=== PATIENT | female | born 1930 | race Caucasian/White ===

== ENCOUNTER → 2016-03-11 | Outpatient (CLI) | payer MEDICARE, BC ==
--- NOTE | 2016-03-11 12:32 | XR ---
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 There is some lucency along the fixation screws within the glenoid with some associated sclerosis. Some minimal lucency along the humeral component also noted especially at the lateral aspect. Marked arthropathy present at the acromioclavicular join t. Bone mineralization is decreased. Small ossific density is present at the inferior aspect of the b nancy glenoid on oblique view, there may be some small loose bodies. No dislocation. IMPRESSION: Correlate for possible prosthesis loosening. There may be some fragmentation at the bony glenoid, difficult to exclude chronic infection, correlate. Follow-up recommended.
== END | disposition home or self-care (01) ==
LOC: RADXRMAIN 11:20
PROVIDERS: ATTEND Orthopaedic Surgery
DX: M19.012 Primary osteoarthritis, left shoulder (principal); M24.419 Recurrent dislocation, unspecified shoulder

== ENCOUNTER 2016-04-07 08:11 | Inpatient (IN) | payer MEDICARE, BC ==
[2016-04-07] MEDS ORDERED: SODIUM CHLORIDE 0.9% 1,000 ML IV STA (08:39)
--- NOTE | 2016-04-07 08:41 | ED ---
General Adult HPI - General Chief complaint: Syncope Stated complaint: syncope Time Seen by Provider: 04/07/16 08:32 Source: patient, family, RN notes reviewed Mode of arrival: wheelchair Limitations: no limitations - History of Present Illness Initial comments: Patient is a pleasant 86-year-old female presenting to the emergency department following a syncopal episode. Episode occurred this morning after she woke up. Patient sat up on the side of her bed and felt lightheaded and then passed out. Patient believes she passed out before she struck the ground. Patient has very mild discomfort on the right side of her head where she did strike the ground. No history of syncopal episode previously. Patient did have some chest discomfort throughout the night however that lasted around 15 minutes and has resolved. Patient states she has not felt chest discomfort similar to that previously. Patient currently is symptom-free other than the very mild discomfort in the right side of her head. No neck or back pain. No chest pain or dyspnea. No abdominal pain. Patient is not currently on any blood thinners except for aspirin. No known history of atrial fibrillation. - Related Data Home Medications Medication Instructions Recorded Confirmed Aspirin 81 mg PO DAILY 07/22/13 04/07/16 Royce Cit/Mag/D3/Zn/Lead Carpenter/Madhu/Bor 1 tab PO DAILY 07/22/13 04/07/16 [Citracal-Vit D + Magnesium Tab] Calcium Carbonate/Vitamin D3 1 tab PO DAILY 07/22/13 04/07/16 [Caltrate 600 + D Tablet] Cholecalciferol [Vitamin D3] 2,000 unit PO DAILY@1200 07/22/13 04/07/16 Fish Oil/Dha/Epa [Fish Oil 1,200 1 cap PO DAILY 07/22/13 04/07/16 mg Fish Oil] Multivitamins, Thera [Multivitamin] 1 each PO DAILY 07/22/13 04/07/16 Nitroglycerin Sl Tabs [Nitrostat] 0.4 mg SUBLINGUAL Q5M PRN 07/22/13 04/07/16 Losartan Potassium [Cozaar] 100 mg PO DAILY 04/07/16 04/07/16 amLODIPine BESYLATE [Norvasc] 7.5 mg PO DAILY 04/07/16 04/07/16 Allergies Allergy/AdvReac Type Severity Reaction Status Date / Time lactose Allergy Unknown Abdominal Verified 04/07/16 09:00 Pain Sulfa (Sulfonamide Allergy Unknown Nausea & Verified 04/07/16 09:00 Antibiotics) Vomiting NSAIDS (Non-Steroidal AdvReac Unknown Unknown Verified 04/07/16 09:00 Anti-Inflamma Review of Systems ROS Statement: Those systems with pertinent positive or pertinent negative responses have been documented in the HPI. ROS Other: All systems not noted in ROS Statement are negative. Constitutional: Denies: fever Eyes: Denies: eye pain ENT: Denies: ear pain Respiratory: Denies: cough Cardiovascular: Reports: chest pain. Denies: palpitations Endocrine: Denies: fatigue Gastrointestinal: Denies: abdominal pain Genitourinary: Denies: urgency Musculoskeletal: Denies: back pain Skin: Denies: rash Neurological: Denies: weakness, paresthesias, confusion Past Medical History Past Medical History: Chest Pain / Angina, GERD/Reflux, Hypertension Additional Past Medical History / Comment(s): HAS ENEDINA ROTATOR CUFFS, HEMORRHOIDS , BLEEDING WITH BOWEL MOVEMENTS History of Any Multi-Drug Resistant Organisms: None Reported Past Surgical History: Cholecystectomy, Heart Catheterization With Stent, Joint Replacement, Orthopedic Surgery Additional Past Surgical History / Comment(s): VAGOTOMY, ENEDINA ROTATOR CUFF REPAIR , ENEDINA CATARACT, left shoulder replacement Past Anesthesia/Blood Transfusion Reactions: No Reported Reaction Date of Last Stent Placement:: 05/2012 Past Psychological History: No Psychological Hx Reported Smoking Status: Never smoker Past Alcohol Use History: Occasional Past Drug Use History: None Reported General Exam Limitations: no limitations General appearance: alert, in no apparent distress Head exam: Present: atraumatic Eye exam: Present: normal appearance, PERRL, EOMI ENT exam: Present: normal oropharynx Neck exam: Present: normal inspection. Absent: tenderness Respiratory exam: Present: normal lung sounds bilaterally Cardiovascular Exam: Present: irregular rhythm Expanded Peripheral pulses: 2+: Radial (R), Radial (L), Dorsalis Pedis (R), Dorsalis Pedis (L) GI/Abdominal exam: Present: soft. Absent: tenderness Extremities exam: Present: normal inspection Neurological exam: Present: alert, CN II-XII intact. Absent: motor sensory deficit Expanded Speech: Present: fluid speech Cranial nerves: EOM's Intact: Normal Sensory exam: Upper Extremity Light Touch: Normal, Lower Extremity Light Touch: Normal Motor strength exam: RUE: 5, LUE: 5, RLE: 5, LLE: 5 Eye Response: (4) open spontaneously Motor Response: (6) obeys commands Verbal Response: (5) oriented Psychiatric exam: Present: normal affect, normal mood Skin exam: Absent: rash Course Vital Signs 04/07/16 04/07/16 04/07/16 08:16 09:35 09:42 Temperature 97.7 F Pulse Rate 84 93 101 H Respiratory 20 18 18 Rate Blood Pressure 141/82 204/100 192/112 O2 Sat by Pulse 99 98 97 Oximetry 04/07/16 04/07/16 10:09 10:50 Temperature Pulse Rate 94 99 Respiratory 18 18 Rate Blood Pressure 157/103 141/110 O2 Sat by Pulse 96 98 Oximetry EKG Findings - EKG Comments: EKG Findings:: A. fib with a rate of 97. QRS 70. QT 302. QTC 33. Normal access. Septal Q waves. No acute ST change. Medical Decision Making - Medical Decision Making Patient reexamined and resting comfortably in bed. Heart rate remains in the upper 90s. Blood pressure remains 140/110. Patient did take her morning medications in the emergency department. Patient will be provided with atenolol orally. Patient remained symptom-free. Dr. Clifton was notified. Case was discussed in detail with Dr. Frazier, who will admit for Dr. Clifton. Cardiology will be consulted for A. fib syncope. - Lab Data Result diagrams: 04/07/16 08:55 04/07/16 08:55 Lab Results 04/07/16 04/07/16 04/07/16 Range/Units 08:45 08:55 08:55 WBC 4.2 (3.8-10.6) k/uL RBC 4.28 (3.80-5.40) m/uL Hgb 13.4 (11.4-16.0) gm/dL Hct 39.8 (34.0-46.0) % MCV 93.0 (80.0-100.0) fL MCH 31.4 (25.0-35.0) pg MCHC 33.8 (31.0-37.0) g/dL RDW 13.8 (11.5-15.5) % Plt Count 217 (150-450) k/uL Neutrophils % 68 % Lymphocytes % 21 % Monocytes % 7 % Eosinophils % 1 % Basophils % 0 % Neutrophils # 2.8 (1.3-7.7) k/uL Lymphocytes # 0.9 L (1.0-4.8) k/uL Monocytes # 0.3 (0-1.0) k/uL Eosinophils # 0.1 (0-0.7) k/uL Basophils # 0.0 (0-0.2) k/uL PT (9.0-12.0) sec INR (<1.1) APTT (22.0-30.0) sec Sodium (137-145) mmol/L Potassium (3.5-5.1) mmol/L Chloride (98-107) mmol/L Carbon Dioxide (22-30) mmol/L Anion Gap mmol/L BUN (7-17) mg/dL Creatinine (0.52-1.04) mg/dL Est GFR (MDRD) Af Amer (>60 ml/min/1.73 sqM) Est GFR (MDRD) Non-Af (>60 ml/min/1.73 sqM) Glucose (74-99) mg/dL Calcium (8.4-10.2) mg/dL Magnesium (1.6-2.3) mg/dL Total Bilirubin (0.2-1.3) mg/dL AST (14-36) U/L ALT (9-52) U/L Alkaline Phosphatase (38-126) U/L Total Creatine Kinase 121 (30-135) U/L CK-MB (CK-2) 2.4 (0.0-2.4) ng/mL CK-MB (CK-2) Rel Index 2.0 Troponin I 0.017 (0.000-0.034) ng/mL Total Protein (6.3-8.2) g/dL Albumin (3.5-5.0) g/dL TSH (0.465-4.680) mIU/L Free T4 (0.78-2.19) ng/dL Free T3 pg/mL (2.8-5.3) pg/ml Urine Color Colorless Urine Appearance Clear (Clear) Urine pH 7.0 (5.0-8.0) Ur Specific [place] 1.003 (1.001-1.035) Urine Protein Negative (Negative) Urine Glucose (UA) Negative (Negative) Urine Ketones Negative (Negative) Urine Blood Negative (Negative) Urine Nitrate Negative (Negative) Urine Bilirubin Negative (Negative) Urine Urobilinogen <2.0 (<2.0) mg/dL Ur Leukocyte Esterase Negative (Negative) 04/07/16 04/07/16 Range/Units 08:55 08:55 WBC (3.8-10.6) k/uL RBC (3.80-5.40) m/uL Hgb (11.4-16.0) gm/dL Hct (34.0-46.0) % MCV (80.0-100.0) fL MCH (25.0-35.0) pg MCHC (31.0-37.0) g/dL RDW (11.5-15.5) % Plt Count (150-450) k/uL Neutrophils % % Lymphocytes % % Monocytes % % Eosinophils % % Basophils % % Neutrophils # (1.3-7.7) k/uL Lymphocytes # (1.0-4.8) k/uL Monocytes # (0-1.0) k/uL Eosinophils # (0-0.7) k/uL Basophils # (0-0.2) k/uL PT 9.9 (9.0-12.0) sec INR 1.0 (<1.1) APTT 20.6 L (22.0-30.0) sec Sodium 134 L (137-145) mmol/L Potassium 4.3 (3.5-5.1) mmol/L Chloride 98 (98-107) mmol/L Carbon Dioxide 26 (22-30) mmol/L Anion Gap 10 mmol/L BUN 17 (7-17) mg/dL Creatinine 0.99 (0.52-1.04) mg/dL Est GFR (MDRD) Af Amer >60 (>60 ml/min/1.73 sqM) Est GFR (MDRD) Non-Af 53 (>60 ml/min/1.73 sqM) Glucose 98 (74-99) mg/dL Calcium 9.3 (8.4-10.2) mg/dL Magnesium 1.9 (1.6-2.3) mg/dL Total Bilirubin 0.6 (0.2-1.3) mg/dL AST 40 H (14-36) U/L ALT 46 (9-52) U/L Alkaline Phosphatase 75 (38-126) U/L Total Creatine Kinase (30-135) U/L CK-MB (CK-2) (0.0-2.4) ng/mL CK-MB (CK-2) Rel Index Troponin I (0.000-0.034) ng/mL Total Protein 6.8 (6.3-8.2) g/dL Albumin 4.0 (3.5-5.0) g/dL TSH 2.060 (0.465-4.680) mIU/L Free T4 1.51 (0.78-2.19) ng/dL Free T3 pg/mL 3.7 (2.8-5.3) pg/ml Urine Color Urine Appearance (Clear) Urine pH (5.0-8.0) Ur Specific [place] (1.001-1.035) Urine Protein (Negative) Urine Glucose (UA) (Negative) Urine Ketones (Negative) Urine Blood (Negative) Urine Nitrate (Negative) Urine Bilirubin (Negative) Urine Urobilinogen (<2.0) mg/dL Ur Leukocyte Esterase (Negative) - Radiology Data Radiology results: image reviewed (Chest x-ray shows chronic changes without acute abnormality. Computed tomography scan of the brain shows some atrophy without acute abnormality.) Disposition Clinical Impression: Syncope, New onset a-fib Disposition: ADMITTED IP TO THIS HOSP
[2016-04-07] MEDS ORDERED: amLODIPine 5 MG TAB PO STA (09:00)
[2016-04-07 09:04] LABS: Basophils % (A) 0 %; CH 32.1; CHCM 34.6; Eosinophils # (A) 0.1 k/uL (0-0.7); Eosinophils % (A) 1 %; HCT 39.8 % (34.0-46.0); HDW 2.48; HGB 13.4 gm/dL (11.4-16.0); Luc # (Auto) 0.12; Luc % (Auto) 3; Lymphocytes # (A) 0.9 k/uL (1.0-4.8); Lymphocytes % (A) 21 %; MCH 31.4 pg (25.0-35.0); MCHC 33.8 g/dL (31.0-37.0); Mean Platelet Volume 6.5; Monocytes # (A) 0.3 k/uL (0-1.0); Monocytes % (A) 7 %; Neutrophils # (A) 2.8 k/uL (1.3-7.7); Neutrophils % (A) 68 %; RBC 4.28 m/uL (3.80-5.40); RDW 13.8 % (11.5-15.5); WBC 4.2 k/uL (3.8-10.6); WBC (Perox) 3.97
[2016-04-07 09:15] LABS: ALT 46 U/L (9-52); AST 40 U/L (14-36); Alkaline Phosphatase 75 U/L (38-126); Anion Gap 10 mmol/L; Blood Urea Nitrogen 17 mg/dL (7-17); Calcium 9.3 mg/dL (8.4-10.2); Carbon Dioxide 26 mmol/L (22-30); Chloride 98 mmol/L (98-107); Glucose 98 mg/dL (74-99); Magnesium 1.9 mg/dL (1.6-2.3); Non-African American GFR(MDRD) 53 (>60 ml/min/1.73 sqM); Potassium 4.3 mmol/L (3.5-5.1); Sodium 134 mmol/L (137-145); Total Bilirubin 0.6 mg/dL (0.2-1.3); Total Protein 6.8 g/dL (6.3-8.2)
--- NOTE | 2016-04-07 09:17 | CT ---
EXAMINATION TYPE: CT brain wo con DATE OF EXAM: 04/07/2016 9:11 AM HISTORY: Patient had syncopal episode with blow to head this am. Headache at time of exam. CT DLP: 993 mGycm. Automated Exposure Control for Dose Reduction was Utilized. TECHNIQUE: CT scan of the head is performed without contrast. COMPARISON: None. FINDINGS: There is no acute intracranial hemorrhage or midline shift identified. There is diffuse v entricular and sulcal prominence consistent with diffuse age-related cerebral atrophy. There is low- attenuation in the periventricular white matter presumed on basis of product of chronic small vessel ischemic change in patient of this age. The globes are intact and the visualized sinuses are clear. IMPRESSION: No acute intracranial hemorrhage or midline shift. There is mild to moderate diffuse ag e-related cerebral atrophy and chronic small vessel ischemic change noted.
[2016-04-07 09:25] LABS: Prothrombin Time 9.9 sec (9.0-12.0)
--- NOTE | 2016-04-07 09:27 | XR ---
EXAMINATION TYPE: XR chest 2V DATE OF EXAM: 04/07/2016 9:16 AM COMPARISON: Chest x-ray and CTA chest February 06, 2012 HISTORY: Syncope and weakness TECHNIQUE: Frontal and lateral views of the chest are obtained. FINDINGS: Underlying emphysematous changes redemonstrated. There is no focal air space opacity, pleur al effusion, or pneumothorax seen. The cardiac silhouette size mildly enlarged on current study with ectatic thoracic aorta redemonstrated. Surgical clips near gastroesophageal junction are noted . The osseous structures are demineralized. Metallic anchors right humeral head level are redemonstra hilda. Surgical changes left shoulder level are partially imaged. IMPRESSION: Chronic emphysematous change with mild cardiomegaly but no acute pulmonary process.
[2016-04-07 09:36] LABS: Partial Thromboplastin Time 20.6 sec (22.0-30.0)
[2016-04-07 09:40] LABS: Creatine Kinase MB 2.4 ng/mL (0.0-2.4); Troponin I 0.017 ng/mL (0.000-0.034)
[2016-04-07 10:02] LABS: Appearance,Urine Clear (Clear); Bilirubin,Urine Negative (Negative); Glucose,Urine (UA) Negative (Negative); Ketones,Urine Negative (Negative); Leukocyte Esterase,Urine Negative (Negative); Nitrite,Urine Negative (Negative); Protein,Urine Negative (Negative); Specific Gravity,Urine 1.003 (1.001-1.035); UA Billing (MACRO vs. MICRO) CHEM; Urobilinogen,Urine <2.0 mg/dL (<2.0)
[2016-04-07] MEDS ORDERED: ATENOLOL 25 MG TAB PO STA (11:08)
[2016-04-07] MEDS ORDERED: NALOXONE 0.4 MG/ML 1 ML VIAL IV PRN (11:19)
[2016-04-07] MEDS: APIXABAN 2.5 MG TABLET PO SCH ×2 (13:22→20:43)
--- NOTE | 2016-04-07 13:31 | CONS ---
CHIEF COMPLAINT: Syncope. Nisreen is an 86-year-old lady with a history of coronary artery disease, status post angioplasty and hypertension who presented to hospital having had an episode of syncope. She was sitting and then suddenly passed out, did not have any chest pain or difficulty in breathing, did not have focal neurological deficits. There is no prior history of syncope. Patient has history of hypertension, recently had the amlodipine dose increased by Dr. Clifton and on evaluation today, she has significant orthostatic hypotension. Patient also has new onset atrial fibrillation, but with controlled ventricular rate. Past medical history is significant for coronary artery disease, status post angioplasty, and hypertension. Medications include: 1. Norvasc 7.5 daily. 2. Cozaar 100 mg daily. 3. Fish oil. 4. Aspirin. 5. Cholecalciferol. ALLERGIC TO SULFA, LACTOSE AND NSAIDS. FAMILY HISTORY: Negative for premature coronary artery disease. SOCIAL HISTORY: Negative for smoking, EtOH abuse or drug abuse. REVIEW OF SYSTEMS: HEENT: Unremarkable. CARDIAC: As described above. RESPIRATORY: Negative. GI: Negative. GENITOURINARY: Negative. ALLERGY/IMMUNOLOGY: Negative. SKIN: Negative. MUSCULOSKELETAL: Significant for arthritis. PSYCHOSOCIAL: Negative. ENDOCRINE: Negative. DERMATOLOGY: Negative. CONSTITUTIONAL: Negative. 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 ONCOLOGICAL: Negative. On exam, comfortable at rest. Heart rate is 89 beats per minute, blood pressure is 133/84. When sitting up, it drops to 98/60. O2 sat is 96% on room air. There is no jugular venous distention. Carotid upstroke is normal. There is no bruit. Chest reveals good air entry bilaterally. Heart reveals first and second heart sounds. No gallop. No murmur. Abdomen is soft, nontender. Extremities did not reveal edema. Peripheral pulses are felt. EKG shows atrial fibrillation with controlled ventricular rate. Hemoglobin is normal at 15.4. Potassium is 4.3. First set of troponin is negative. TSH is normal at 2. ASSESSMENT: 1. Syncope, probably secondary to orthostatic hypotension. 2. History of hypertension. 3. New onset atrial fibrillation. 4. Coronary artery disease, status post angioplasty. PLAN: I am going to obtain a 2-D echo on her to document her LV function, a carotid duplex study to rule out carotid stenosis. I reviewed her workup so far, including the EKGs and the CT brain. Patient will need a long-term to coagulate for stroke prevention. I am going to put her on Eliquis 2.5 mg b.i.d.
[2016-04-07] MEDS: CHOLECALCIFEROL 1,000 UNIT TAB PO SCH (14:41)
[2016-04-07 15:09] VITALS: BMI 17.6
[2016-04-07 16:19] LABS: Creatine Kinase MB 1.9 ng/mL (0.0-2.4); Troponin I 0.012 ng/mL (0.000-0.034)
--- NOTE | 2016-04-07 16:42 | US ---
EXAMINATION TYPE: US carotid duplex BILAT DATE OF EXAM: 04/07/2016 4:14 PM COMPARISON: NONE CLINICAL HISTORY: syncope. EXAM MEASUREMENTS: RIGHT: Peak Systolic Velocity (PSV) cm/sec ----- Right CCA: 34.6 ----- Right ICA: 45.9 ----- Right ECA: 29.8 ICA/CCA ratio: 1.3 RIGHT: End Diastole cm/sec ----- Right CCA: 15.4 ----- Right ICA: 22.3 ----- Right ECA: 5.8 LEFT: Peak Systolic Velocity (PSV) cm/sec ----- Left CCA: 33.7 ----- Left ICA: 84.4 ----- Left ECA: 53.8 ICA/CCA ratio: 2.5 LEFT: End Diastole cm/sec ----- Left CCA: 12.7 ----- Left ICA: 45.8 ----- Left ECA: 11.0 VERTEBRALS (direction of flow): Right Vertebral: Antegrade Left Vertebral: Antegrade TECHNOLOGIST IMPRESSION: Moderate plaque noted bilateral bifurcations. Generally decreased velocitie s, except for left ICA Grayscale images show moderate eccentric shadowing hyperechoic plaque at right carotid bulb . Mild to moderate eccentric hyperechoic plaque is seen at left carotid bulb. Velocity measurements and ratios in visualized portion of both internal carotid arteries is within normal limits. IMPRESSION: Mild to moderate atherosclerotic changes bilaterally without hemodynamically significant stenosis seen in either internal carotid artery.
[2016-04-07] MEDS ORDERED: RX INFO: IV CONTRAST WAS GIVEN 1 EACH MISC MISCELLANE PRN (17:24)
[2016-04-07] MEDS: SODIUM CHLORIDE 0.9% 1,000 ML IV SCH (17:52)
[2016-04-07 18:11] VITALS: RESP 18
--- NOTE | 2016-04-07 18:44 | CT ---
EXAMINATION TYPE: CT angio chest DATE OF EXAM: 04/07/2016 6:17 PM COMPARISON: 02/06/2012 HISTORY: Pt states of syncope and elevated d-dimer. CT DLP: 146.2 mGycm Automated exposure control for dose reduction was used. CONTRAST: CTA scan of the thorax is performed with IV Contrast, patient injected with 85 mL of Visipaque 320, p ulmonary embolism protocol. . FINDINGS: There are 3-D post processed images. There is a mild infiltrate at the right lung apex posteriorly. T here is no evidence of a pulmonary mass. There is no pleural effusion. Heart is slightly enlarged. Th ere is no pericardial effusion. I see no filling defects in the pulmonary arteries. There is no evide nce of aortic dissection. There is mild aneurysm of the ascending aorta that measures 4.1 cm. There i s no mediastinal adenopathy. IMPRESSION: NO EVIDENCE OF PULMONARY EMBOLISM. MILD ANEURYSM OF THE ASCENDING AORTA. MILD INFILTRATE AT THE RIGHT LUNG APEX PROBABLY RELATES TO SCARRING. NO ADVERSE CHANGE COMPARED TO OLD EXAM.
--- NOTE | 2016-04-07 20:41 | HP ---
CHIEF COMPLAINT: Syncope. HISTORY OF PRESENT ILLNESS: Ms. Nisreen Richards is an 86-year-old pleasant female with known history of hypertension, came to the hospital after a syncopal episode at home. Patient apparently woke up in the morning and she sat on the side of the bed and felt lightheaded and passed out and fell to the side and onto the floor. Patient woke up after about 15 minutes. Patient denied any chest discomfort, dizziness or lightheadedness before or after the episode. No bladder or bowel incontinence. Patient denied any weakness after the episode. Patient otherwise is symptom-free. No recent medical problems. Patient apparently has been taking blood pressure medications, including losartan and Norvasc dose has been increased to 7.5 mg recently. Her chest x-ray in the ER showed chronic emphysematous changes with mild cardiomegaly, but no acute cardiopulmonary process, and CT head showed no acute intracranial hemorrhage or midline shift and the EKG on admission showed atrial fibrillation which is new onset. Cardiology has seen the patient and currently started on anticoagulation. Rate is controlled now. Currently on anticoagulation in the form of Eliquis. Currently patient denied any complaints of fever, chills. No recent illnesses. No sick contacts at home. Patient denied any dehydration and patient has been taking in water at home. REVIEW OF SYSTEMS: CONSTITUTIONAL: No fever. No chills. No weakness, malaise. RESPIRATORY: No cough or sputum production. CARDIOVASCULAR: No chest pain or short of breath. ABDOMEN: No nausea, vomiting or abdominal pain. GENITOURINARY: Negative. ENDOCRINE: Negative. PSYCHIATRIC: Negative. SKIN: Negative. All other 14-point review of systems negative except as above. Past medical history includes chest pain/angina, GERD, hypertension. PAST SURGICAL HISTORY: Bilateral rotator cuff and hemorrhoid bleeding with bowel movements, cholecystectomy, cardiac catheterization and stent placement, joint replacement and orthopedic surgery, vagotomy, bilateral rotator cuff repair, bilateral cataract surgery, left shoulder replacement. SOCIAL HISTORY: Patient never a smoker, resides at home. Occasional alcohol use. Denied any drugs or IVDU. FAMILY HISTORY: Denied any history of premature heart disease in the family. ALLERGIES INCLUDE LACTOSE, SULFA AND NSAIDS. HOME MEDICATIONS: 1. Aspirin. 2. Citracal. 3. Calcium carbonate. 4. Vitamin D3. 5. Fish oil. 6. Multivitamins. 7. Nitroglycerin tablets. 8. Losartan. 9. Amlodipine 7.5 mg daily. PHYSICAL EXAM: An 86-year-old female lying in bed comfortably; alert and oriented x3, appears to be in no apparent distress. VITALS: Blood pressure is 162/111, pulse is 108, respirations 18, temperature afebrile, pulse ox 98% on 2L nasal cannula. Orthostatic vitals positive with blood pressure in supine position is 133/84 and blood pressure on sitting is 98/70. HEENT: Atraumatic, normocephalic. Neck is supple. No JVD. CVS: S1, S2 heard. No murmurs. No gallop. No rub. LUNGS: Bilateral air entry is present. No wheezing. No crackles. ABDOMEN: Soft, nontender. Bowel sounds present. 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 No focal deficit. EXTREMITIES: No edema. Pulses are present. No clubbing or cyanosis. PSYCHIATRIC: Cooperative. LABORATORY DATA: WBC 4.2, hemoglobin 13.4, platelets 217. INR is 1.0. D-dimer is 1.53. Sodium 134, potassium 4.8, chloride 98, bicarb is 26, BUN 17, creatinine 0.99. AST is 40, ALT is 46. Troponin is less than 0.017. TSH is 2.06, free T4 is 1.51. UA is negative. Chest x-ray showed cardiomegaly. No acute process. CT brain showed no acute intracranial process. EKG showed atrial fibrillation. IMPRESSION: 1. Syncope secondary to orthostatic hypotension. 2. New onset atrial fibrillation, currently rate controlled and started on anticoagulation in the Eliquis. 3. History of coronary artery disease with stent placement. 4. Elevated D-dimer check. Will check CT of the chest to rule out any pulmonary embolism. 5. Mild hypovolemic hyponatremia. 6. Hypertension with a recent increase in blood pressure medication in the form of amlodipine 7.5 mg daily. 7. Deep venous thrombosis prophylaxis. Patient is already on anticoagulation with Eliquis. 8. THE PATIENT IS FULL CODE. DISCUSSION AND PLAN: An 86-year-old female admitted to the hospital with syncope and found to have new onset atrial fibrillation and orthostatic hypotension. Will hold amlodipine at this time and continue to tele monitor the patient. Two-D echo was ordered. Will check carotid duplex as well. Cardiology is following the patient and further recommendations based on the clinical course.
[2016-04-07] MEDS ORDERED: HEPARIN SODIUM,PORCINE 5,000 UNIT/ML 1 ML VIAL SQ SCH (21:00)
[2016-04-07 21:04] LABS: Creatine Kinase 92 U/L (30-135)
[2016-04-07 21:16] LABS: Creatine Kinase MB 1.6 ng/mL (0.0-2.4); Troponin I <0.012 ng/mL (0.000-0.034)
[2016-04-08] MEDS: APIXABAN 2.5 MG TABLET PO SCH (08:40)
[2016-04-08] MEDS ORDERED: amLODIPine 2.5 MG TAB PO SCH (09:00)
[2016-04-08] MEDS ORDERED: LOSARTAN 50 MG TAB PO SCH (09:00)
[2016-04-08] MEDS ORDERED: ASPIRIN 81 MG CHEW PO SCH (09:00)
[2016-04-08] MEDS ORDERED: NON-FORMULARY DRUG (Fish Oil/Dha/Epa [Fish Oil 1,200 Mg Fish Oil] 1 CAP) PO SCH (09:00)
--- NOTE | 2016-04-08 09:39 | ECHOF ---
Referral Reason:a fib, syncope MEASUREMENTS -------- HEIGHT: 162.6 cm WEIGHT: 46.7 kg BP: 153/95 RVIDd: 2.6 cm (< 3.3) IVSd: 0.9 cm (0.6 - 1.1) LVIDd: 3.8 cm (3.9 - 5.3) LVPWd: 1.1 cm (0.6 - 1.1) IVSs: 1.5 cm LVIDs: 2.6 cm LVPWs: 1.4 cm LA Diam: 3.4 cm (2.7 - 3.8) LAESV Index (A-L): 23.79 ml/m Ao Diam: 3.2 cm (2.0 - 3.7) AV Cusp: 2.1 cm (1.5 - 2.6) MV EXCURSION: 15.792 mm (> 18.000) MV EF SLOPE: 86 mm/s (70 - 150) EPSS: 0.4 cm RAP: 5.00 mmHg RVSP: 27.81 mmHg FINDINGS -------- Atrial fibrillation. This was a technically good study. The left ventricular size is normal. Left ventricular wall thickness is normal. Overall left ventricular systolic function is low-normal with, an EF between 50 - 55 %. The right ventricle is normal in size and function. The left atrium is normal in size. Normal LA size by volume 22+/-6 ml/m2. The right atrium is normal in size. There is mild aortic valve sclerosis. There is mild aortic regurgitation. The mitral valve leaflets are mildly thickened. Mild mitral annular calcification present. Mild mitral regurgitation is present. Mild tricuspid regurgitation present. Right ventricular systolic pressure is normal at < 35 mmHg. The pulmonic valve was not well visualized. The aortic root size is normal. Normal inferior vena cava with normal inspiratory collapse consistent with estimated right atrial pressure of 5 mmHg. There is no pericardial effusion. CONCLUSIONS -------- 1. Atrial fibrillation. 2. There is mild aortic regurgitation. 3. The mitral valve leaflets are mildly thickened. 4. Mild mitral annular calcification present. 5. Mild mitral regurgitation is present. 6. Mild tricuspid regurgitation present. 7. Right ventricular systolic pressure is normal at < 35 mmHg. 8. The pulmonic valve was not well visualized. 9. The aortic root size is normal. 10. Normal inferior vena cava with normal inspiratory collapse consistent with estimated right atrial pressure of 5 mmHg. 11. There is no pericardial effusion. 12. This was a technically good study. 13. The left ventricular size is normal. 14. Left ventricular wall thickness is normal. 15. Overall left ventricular systolic function is low-normal with, an EF between 50 - 55 %. 16. The right ventricle is normal in size and function. 17. Normal LA size by volume 22+/-6 ml/m2. 18. The right atrium is normal in size. 19. There is mild aortic valve sclerosis. [employer] OFFICER: Rossy Trujillo RDCS
[2016-04-08 10:07] VITALS: TEMP 98.1
--- NOTE | 2016-04-08 11:52 | PN ---
Nisreen is an 86-year-old lady who was admitted to hospital having had an episode of syncope that is thought to be secondary to orthostatic hypotension. She has normal LV function with an ejection fraction of 50% to 55% and on her initial presentation, we found that she was in atrial fibrillation. A carotid duplex study showed mild to moderate disease without hemodynamically significant stenosis. An echocardiogram showed normal LV function. She had CT chest that was negative for pulmonary embolism. Ascending aorta showed mild aneurysmal dilatation. On exam today she is comfortable at rest. Vital signs are stable. Still has orthostatic changes, but much improved compared to where she was when she came in. There is no jugular venous distention. Carotid upstroke is normal. There is no bruit. Chest exam reveals good air entry bilaterally. Heart exam reveals first and second heart sounds. No gallop. Irregular rhythm. No murmur. Abdomen is soft. Exam of the extremities did not reveal any edema. Peripheral pulses are felt. ASSESSMENT: 1. Atrial fibrillation with controlled ventricular rate. 2. Syncope secondary to orthostatic hypotension. We changed her blood pressure medications. Stop the Norvasc, cut back Cozaar to 50 mg daily. I believe she was receiving too many and too much of antihypertensive therapy on her initial presentation. With these adjustments, I anticipate her getting better. I started her on Eliquis 2.5 mg b.i.d. Will ambulate her if she is doing well. Maybe home this afternoon; if not, tomorrow.
[2016-04-08] MEDS ORDERED: CALCIUM CARB-VIT D 500MG-200UN 1 EACH TAB PO SCH (12:00)
[2016-04-08] MEDS ORDERED: MAGNESIUM OXIDE 250 MG TAB PO SCH (12:00)
[2016-04-08] MEDS ORDERED: MULTIVITAMINS, THERA 1 EACH TAB PO SCH (12:00)
[2016-04-08] MEDS: SODIUM CHLORIDE 0.9% 1,000 ML IV SCH (12:09)
[2016-04-08] MEDS: CHOLECALCIFEROL 1,000 UNIT TAB PO SCH (12:09)
[2016-04-08 14:09] VITALS: BP 134/81; PULSE 81
--- NOTE | 2016-04-08 14:18 | P.CNPUL ---
History of Present Illness Consult date: 04/08/16 Requesting physician: Constantine Frazier Reason for consult: abnormal CXR/CT Chief complaint: Dizziness, syncope History of present illness: This is a very pleasant 86-year-old female patient who follows with Dr. Clifton as her primary care physician. She has a history of hypertension hyperlipidemia , GERD, osteoarthritis. She had been having some issues with uncontrolled hypertension in the outpatient setting. She was initially on amlodipine 2.5 mg daily subsequently bumped to 5 mg daily and then eventually to 7.5 mg daily approximate 2 weeks ago. Yesterday morning she woke up and sat up at the edge of the bed to catch her balance when she started and by the time she got to the foot of the bed she was quite weak and dizzy. She sat down on her hope chest at the foot of the bed and eventually slumped to the floor. She denied any significant injury or extended loss of consciousness. Her grandson came to the house and picked her up and brought her to the emergency room. She was found to have a new onset of atrial fibrillation. An echocardiogram revealed preserved left ventricular systolic function, no pulmonary hypertension, no significant valvular abnormalities. Her troponins were negative 3. Thyroid function normal. He had a mildly elevated d-dimer and a CT angiogram was performed. There is no evidence of pulmonary embolism. There was some noted mild infiltrate in the right lung apex most likely related to scarring. She has no pulmonary complaints. She is maintaining good O2 saturations in the upper 90s on room air. She's been afebrile. Review of Systems 14 point review of system was conducted. All negative other than as mentioned in HPI. Past Medical History Past Medical History: Chest Pain / Angina, GERD/Reflux, Hyperlipidemia, Hypertension, Osteoarthritis (OA) Additional Past Medical History / Comment(s): Leaky heart valve, high cholesterol being monitored, IBS, rectal prolapse, hemorrhoids, gastric ulcer, possible kidney stones, UTI, occasional back pain, head injury in 2001-no residual effect, L carpal tunnel syndrome, sinus problem recently, OA multiple joints-especially in neck. History of Any Multi-Drug Resistant Organisms: None Reported Past Surgical History: Cholecystectomy, Heart Catheterization With Stent, Joint Replacement, Orthopedic Surgery Additional Past Surgical History / Comment(s): 05/2012 cardiac stent to RCA, VAGOTOMY for stomach ulcer, ENEDINA ROTATOR CUFF REPAIR, left shoulder reverse arthroplasty, bilateral cataracts, L breast benign bx, EGD, colonoscopy. Past Anesthesia/Blood Transfusion Reactions: No Reported Reaction Date of Last Stent Placement:: 05/2012 Past Psychological History: No Psychological Hx Reported Additional Psychological History / Comment(s): Pt resides alone. She had L shoulder reverse arthroplasty in January 2016 and completed PT. She is still having difficulty with that shoulder. She uses no assistive device. She drives. Smoking Status: Never smoker Past Alcohol Use History: Rare Past Drug Use History: None Reported - Past Family History Father Family Medical History: Coronary Artery Disease (CAD), Diabetes Mellitus Mother Family Medical History: Osteoarthritis (OA) Medications and Allergies Home Medications Medication Instructions Recorded Confirmed Type Aspirin 81 mg PO DAILY 07/22/13 04/07/16 History Royce Cit/Mag/D3/Zn/Binding Bench Worker/Madhu/Bor 1 tab PO DAILY 07/22/13 04/07/16 History [Citracal-Vit D + Magnesium Tab] Calcium Carbonate/Vitamin D3 1 tab PO DAILY 07/22/13 04/07/16 History [Caltrate 600 + D Tablet] Cholecalciferol [Vitamin D3] 2,000 unit PO DAILY@1200 07/22/13 04/07/16 History Fish Oil/Dha/Epa [Fish Oil 1,200 1 cap PO DAILY 07/22/13 04/07/16 History mg Fish Oil] Multivitamins, Thera [Multivitamin] 1 each PO DAILY 07/22/13 04/07/16 History Nitroglycerin Sl Tabs [Nitrostat] 0.4 mg SUBLINGUAL Q5M PRN 07/22/13 04/07/16 History Losartan Potassium [Cozaar] 100 mg PO DAILY 04/07/16 04/07/16 History amLODIPine BESYLATE [Norvasc] 7.5 mg PO DAILY 04/07/16 04/07/16 History Allergies Allergy/AdvReac Type Severity Reaction Status Date / Time lactose Allergy Unknown Abdominal Verified 04/07/16 09:00 Pain Sulfa (Sulfonamide Allergy Unknown Nausea & Verified 04/07/16 09:00 Antibiotics) Vomiting NSAIDS (Non-Steroidal AdvReac Unknown Unknown Verified 04/07/16 09:00 Anti-Inflamma Physical Exam Vitals: Vital Signs Temp Pulse Resp BP BP BP BP 04/08/16 08:00 98.1 F 77 18 94/60 118/75 110/76 04/08/16 04:00 98.7 F 77 18 113/76 04/08/16 00:00 82 18 110/77 04/07/16 20:00 96.8 F L 73 18 88/53 04/07/16 16:00 97.0 F L 74 18 91/59 Pulse Ox 04/08/16 08:00 96 04/08/16 04:00 98 04/08/16 00:00 96 04/07/16 20:00 95 04/07/16 16:00 96 Intake and Output 04/07/16 04/08/16 04/08/16 22:59 06:59 14:59 Intake Total 1000 298 Output Total 1300 650 Balance -300 -352 Intake: Intake, IV Titration 1000 Amount Sodium Chloride 0.9% 1, 1000 000 ml @ 75 mls/hr IV . [id number] STA Rx#:[id number] Oral 298 Output: Urine 1300 650 Other: Voiding Method Bedpan Bedpan Bedpan # Voids 1 Weight 46.72 kg 48.9 kg GENERAL EXAM: Alert, active, comfortable in no apparent distress. HEAD: Normocephalic. EYES: Normal reaction of pupils, equal size. NOSE: Clear with pink turbinates. THROAT: No erythema or exudates. NECK: No masses, no JVD. CHEST: No chest wall deformity. LUNGS: Equal air entry with no crackles, wheeze, rhonchi or dullness. CVS: S1 and S2 normal with no audible mumurs, regular rhythm. ABDOMEN: No hepatosplenomegaly, normal bowel sounds, no guarding or rigidity. SPINE: No scoliosis or deformity SKIN: No rashes CENTRAL NERVOUS SYSTEM: No focal deficits, tone is normal in all 4 extremities. Extremities: There is no peripheral edema. No clubbing, no cyanosis. Peripheral pulses are intact. Results - Laboratory Findings CBC and BMP: 04/07/16 08:55 04/07/16 08:55 PT/INR, D-dimer PT 9.9 sec (9.0-12.0) 04/07/16 08:55 INR 1.0 (<1.1) 04/07/16 08:55 D-Dimer 1.53 mg/L FEU (<0.60) H 04/07/16 09:00 - Diagnostic Findings Chest x-ray: image reviewed CT scan - chest: image reviewed Assessment and Plan Plan: Impression: #1 Syncope likely related to orthostatic hypotension and new onset atrial fibrillation. No evidence of myocardial infarction. No evidence of pulmonary embolism. #2 New-onset atrial fibrillation currently with a controlled ventricular response. Initiated on Elquis. #3 Hypertension with recent adjustments in antihypertensives. #4 Hyperlipidemia, diet controlled. #5 Osteoarthritis. #6 Gastroesophageal reflux disease. Plan: The patient was seen and evaluated by Dr. Clifton. Her CAT scan and labs were reviewed. There is no evidence of pulmonary embolism. The patient has no pulmonary complaints. Her blood pressure medications are adjusted accordingly. She is anticoagulated. She is cleared for discharge home. She'll follow-up with Dr. Clifton in our office in 1 week. She is however encouraged to call sooner with any recurrence of symptoms or other questions or concerns.
--- NOTE | 2016-04-08 17:10 | P.DS ---
Providers Date of admission: 04/07/16 11:19 Expected date of discharge: 04/08/16 Attending physician: Constantine Frazier Consults: 04/08/16 14:47 Consult Physician Urgent Consulting Provider: Chema Clifton Consult Reason/Comments: dizziness Do you want consulting provider notified?: Already Contacted Primary care physician: Chema Clifton [facility] Course: This is a 86-year-old female was seen by Dr. Pulliam is her primary care physician comes in to the hospital with an episode of syncope. Patient stated that 4 weeks ago her blood pressure was fairly well controlled. However in the recent times patient's blood pressure has been elevated over the last few weeks. Patient has been seen multiple times in the outpatient setting was noted to have blood pressures around 190s and 200s. Patient's blood pressure medications include losartan was increased to 100 mg and patient's amlodipine was titrated to 7.5 mg. Patient was noted to have orthostatic hypotension on admission. Patient's blood pressure has decreased from 190s [address] down to 100s systolic. Patient was symptomatic in regards to that. Patient was also noted to have new onset atrial fibrillation with controlled ventricular rate. Patient was made to ambulate on the day of discharge did not have any abnormalities on the telemetry monitoring. Patient's discharge medications were changed to Cozaar 50 mg daily her heart rate was controlled and patient was started on Eliquis. Patient is fairly active future stroke prevention is indicated. Physical exam Gen. appearance oriented 3 in no distress Neck is supple no JVD Lungs good air entry clear to auscultation no rhonchi or wheezing Heart S1-S2 heard regular rate and rhythm no murmurs appreciated Abdomen is soft nontender no organomegaly bowel sounds are intact Neurologically cranial nerves II-12 grossly intact no focal motor or sensory deficits noted Skin no abnormalities appreciated discharge diagnosis #1 syncope secondary to orthostatic hypotension #2 new-onset age of ablation #3 history of hypertension Plan - Discharge Summary New Discharge Prescriptions: Apixaban [Eliquis] 2.5 mg PO BID #60 tablet Losartan [Cozaar] 50 mg PO DAILY #30 tab Discharge Medication List Aspirin 81 mg PO DAILY 07/22/13 [History] Oryce Cit/Mag/D3/Zn/Residential Green Building Designer/Madhu/Bor [Citracal-Vit D + Magnesium Tab] 1 tab PO DAILY 05/23/14 [History] Calcium Carbonate/Vitamin D3 [Caltrate 600 + D Tablet] 1 tab PO DAILY 07/22/13 [ History] Cholecalciferol [Vitamin D3] 2,000 unit PO DAILY@1200 07/22/13 [History] Fish Oil/Dha/Epa [Fish Oil 1,200 mg Fish Oil] 1 cap PO DAILY 07/22/13 [History] Multivitamins, Thera [Multivitamin] 1 each PO DAILY 07/22/13 [History] Nitroglycerin Sl Tabs [Nitrostat] 0.4 mg SUBLINGUAL Q5M PRN 07/22/13 [History] amLODIPine BESYLATE [Norvasc] 7.5 mg PO DAILY 04/07/16 [History] Apixaban [Eliquis] 2.5 mg PO BID #60 tablet 04/08/16 [Rx] Losartan [Cozaar] 50 mg PO DAILY #30 tab 04/08/16 [Rx] Follow up Appointment(s)/Referral(s): Chema Clifton MD [Primary Care Provider] - 04/17/16 10:15 am Mina Banks MD [STAFF PHYSICIAN] - 04/14/16 (the office will callwith date and time of appointment) [facility], [NON-STAFF] - Patient Instructions/Handouts: Atrial Fibrillation (DC) Discharge Disposition: HOME SELF-CARE
[2016-04-09] MEDS ORDERED: LOSARTAN 50 MG TAB PO SCH (09:00)
== END 2016-04-08 16:11 | disposition home health service (06) | DRG 312 ==
LOC: EC 08:11 → 6SEL 11:19
PROVIDERS: ADMIT Internal Medicine; ATTEND Internal Medicine
DX: I95.1 Orthostatic hypotension (principal); E87.1 Hypo-osmolality and hyponatremia; I48.91 Unspecified atrial fibrillation; I10 Essential (primary) hypertension; K21.9 Gastro-esophageal reflux disease without esophagitis; E78.00 Pure hypercholesterolemia, unspecified; E78.5 Hyperlipidemia, unspecified; M19.90 Unspecified osteoarthritis, unspecified site; I25.10 Atherosclerotic heart disease of native coronary artery without angina pectoris; K58.9 Irritable bowel syndrome, unspecified; Z82.49 Family history of ischemic heart disease and other diseases of the circulatory system; Z87.11 Personal history of peptic ulcer disease; Z90.49 Acquired absence of other specified parts of digestive tract; Z95.5 Presence of coronary angioplasty implant and graft; Z96.612 Presence of left artificial shoulder joint; Z98.41 Cataract extraction status, right eye; Z88.2 Allergy status to sulfonamides; Z79.899 Other long term (current) drug therapy; Z79.82 Long term (current) use of aspirin
CPT/HCPCS: 36415; 70450; 71020; 71275; 80053; 81003; 82550; 82553; 83735; 84439; 84443; 84481; 84484; 85025; 85379; 85610; 85730; 93005; 93306; 93880; 96360; 96361; 99285

== ENCOUNTER → 2016-04-23 | Outpatient (CLI) | payer MEDICARE, BC ==
--- NOTE | 2016-04-23 11:12 | XR ---
EXAMINATION TYPE: XR shoulder complete LT DATE OF EXAM ORDERED: 04/23/2016 10:54 AM HISTORY: M19.012 osteoarthritis. COMPARISON: Previous study dated 03/11/2016. FINDINGS: The bones are osteopenic, likely on the basis of osteoporosis. There is a left shoulder arthroplasty in place. There is a fracture of one of the glenoid screws. There are hypertrophic changes in the left AC joint. IMPRESSION: 1. NO ACUTE OSSEOUS LESION. 2. STATUS POST LEFT SHOULDER ARTHROPLASTY WITH ONE OF THE GLENOID ANCHOR SCREWS BEING FRACTURE. THIS IS AN INTERVAL CHANGE. 3. HYPERTROPHIC CHANGES, LEFT AC JOINT.
== END | disposition home or self-care (01) ==
LOC: RADXRMAIN 10:36
PROVIDERS: ATTEND Orthopaedic Surgery
DX: M25.812 Other specified joint disorders, left shoulder (principal); Z96.612 Presence of left artificial shoulder joint

== ENCOUNTER → 2016-07-30 | Outpatient (CLI) | payer MEDICARE, BC ==
[2016-07-30 13:28] LABS: ALT 71 U/L (9-52); AST 73 U/L (14-36); Alkaline Phosphatase 101 U/L (38-126); Anion Gap 8 mmol/L; Blood Urea Nitrogen 20 mg/dL (7-17); Calcium 9.9 mg/dL (8.4-10.2); Carbon Dioxide 30 mmol/L (22-30); Chloride 98 mmol/L (98-107); Glucose 89 mg/dL (74-99); Non-African American GFR(MDRD) 50 (>60 ml/min/1.73 sqM); Potassium 4.7 mmol/L (3.5-5.1); Sodium 136 mmol/L (137-145); Total Bilirubin 0.7 mg/dL (0.2-1.3); Total Protein 6.6 g/dL (6.3-8.2)
[2016-07-30 13:41] LABS: CH 31.7; CHCM 32.4; HCT 38.2 % (34.0-46.0); HDW 2.45; HGB 12.2 gm/dL (11.4-16.0); MCH 31.4 pg (25.0-35.0); MCV 98.2 fL (80.0-100.0); Mean Platelet Volume 7.1; RBC 3.88 m/uL (3.80-5.40); RDW 14.1 % (11.5-15.5); WBC 4.8 k/uL (3.8-10.6)
== END | disposition home or self-care (01) ==
LOC: LABWHC1 12:11
PROVIDERS: ATTEND Internal Medicine Interventional Cardiology
DX: R06.02 Shortness of breath (principal); I10 Essential (primary) hypertension
CPT/HCPCS: 36415; 80053; 83880; 85027

== ENCOUNTER → 2016-08-13 | Outpatient (CLI) | payer MEDICARE, BC | END | disposition home or self-care (01) | LOC: LABWHC1 13:26 | PROVIDERS: ATTEND Internal Medicine Interventional Cardiology | DX: I10 Essential (primary) hypertension (principal) | CPT/HCPCS: 36415; 80051; 82565; 84520 ==

== ENCOUNTER 2016-09-05 16:09 | Emergency (ER) | payer MEDICARE, BC ==
--- NOTE | 2016-09-05 17:39 | XR ---
EXAMINATION TYPE: XR shoulder complete RT DATE OF EXAM: 09/05/2016 COMPARISON: NONE HISTORY: Shoulder pain TECHNIQUE: 3 views FINDINGS: There is superior subluxation of the humeral head. There is a pin from old surgery. There i s absence of the acromion. IMPRESSION: Shoulder deformity with absence of the acromion. Previous surgery. No acute fracture seen . Superior subluxation of the humeral head.
--- NOTE | 2016-09-05 18:24 | ED ---
General Adult HPI - General Chief complaint: Extremity Injury, Upper Stated complaint: Right Shoulder Pain Time Seen by Provider: 09/05/16 17:05 Source: patient Mode of arrival: ambulatory Limitations: no limitations - History of Present Illness Initial comments: Nisreen Richards is an 86 yo female who presents to the emergency department this afternoon for evaluation of right shoulder pain. Better reports that yesterday she reached across her body to grab her seatbelt and felt her shoulder pop. She reports that since that time she's had decreased range of motion and increased pain in the shoulder. She reports that today she is unable to abduct the shoulder due to pain. She reports normal strength and sensation in her hand , wrist and elbow. She reports she's had previous surgery on both shoulders, for torn rotator cuff. 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 She follows closely with her orthopedic surgeon, whom she called today but was unable to schedule her an appointment until September 30. Which prompted her to come to the ER for further evaluation. Patient denies any additional injuries or complaints. - Related Data Home Medications Medication Instructions Recorded Confirmed Royce Cit/Mag/D3/Zn/Pitching Coach/Madhu/Bor 2 tab PO BID 07/22/13 09/05/16 [Citracal-Vit D + Magnesium Tab] Calcium Carbonate/Vitamin D3 1 tab PO DAILY 07/22/13 09/05/16 [Caltrate 600 + D Tablet] Fish Oil/Dha/Epa [Fish Oil 1,200 1 cap PO DAILY 07/22/13 09/05/16 mg Fish Oil] Multivitamins, Thera [Multivitamin] 1 tab PO DAILY 07/22/13 09/05/16 Nitroglycerin Sl Tabs [Nitrostat] 0.4 mg SUBLINGUAL Q5M PRN 07/22/13 09/05/16 Furosemide [Lasix] 20 mg PO Q48H 09/05/16 09/05/16 Ipratropium [place] 0.06%Nasal 2 spray EA NOSTRIL BID 09/05/16 09/05/16 [Atrovent Nasal 0.06%] Metoprolol Succinate (ER) [Toprol 25 mg PO HS 09/05/16 09/05/16 Xl] Potassium Chloride ER [K-Dur 10] 10 meq PO Q48H 09/05/16 09/05/16 Previous Rx's Medication Instructions Recorded Apixaban [Eliquis] 2.5 mg PO BID #60 tablet 04/08/16 Allergies Allergy/AdvReac Type Severity Reaction Status Date / Time Sulfa (Sulfonamide Allergy Unknown Nausea & Verified 09/05/16 17:12 Antibiotics) Vomiting lactose AdvReac Unknown Abdominal Verified 09/05/16 17:12 Pain NSAIDS (Non-Steroidal AdvReac Unknown Unknown Verified 09/05/16 17:12 Anti-Inflamma Review of Systems ROS Statement: Those systems with pertinent positive or pertinent negative responses have been documented in the HPI. ROS Other: All systems not noted in ROS Statement are negative. Constitutional: Denies: fever, chills Eyes: Denies: vision change Respiratory: Denies: cough, dyspnea Cardiovascular: Denies: chest pain, palpitations Endocrine: Denies: fatigue Gastrointestinal: Denies: nausea, vomiting Musculoskeletal: Reports: as per HPI, arthralgia. Denies: back pain Skin: Denies: rash, change in color Neurological: Denies: weakness, numbness, paresthesias Psychiatric: Denies: anxiety Hematological/Lymphatic: Denies: easy bleeding, easy bruising Past Medical History Past Medical History: Chest Pain / Angina, GERD/Reflux, Hyperlipidemia, Hypertension, Osteoarthritis (OA) Additional Past Medical History / Comment(s): Leaky heart valve, high cholesterol being monitored, IBS, rectal prolapse, hemorrhoids, gastric ulcer, possible kidney stones, UTI, occasional back pain, head injury in 2001-no residual effect, L carpal tunnel syndrome, sinus problem recently, OA multiple joints-especially in neck. History of Any Multi-Drug Resistant Organisms: None Reported Past Surgical History: Cholecystectomy, Heart Catheterization With Stent, Joint Replacement, Orthopedic Surgery Additional Past Surgical History / Comment(s): 05/2012 cardiac stent to RCA, VAGOTOMY for stomach ulcer, ENEDINA ROTATOR CUFF REPAIR, left shoulder reverse arthroplasty, bilateral cataracts, L breast benign bx, EGD, colonoscopy. Past Anesthesia/Blood Transfusion Reactions: No Reported Reaction Date of Last Stent Placement:: 05/2012 Past Psychological History: No Psychological Hx Reported Smoking Status: Never smoker Past Alcohol Use History: Rare Past Drug Use History: None Reported - Past Family History Father Family Medical History: Coronary Artery Disease (CAD), Diabetes Mellitus Mother Family Medical History: Osteoarthritis (OA) General Exam Limitations: no limitations General appearance: alert, in no apparent distress Head exam: Present: atraumatic, normocephalic, normal inspection Eye exam: Present: normal appearance, PERRL, EOMI. Absent: scleral icterus, conjunctival injection, periorbital swelling ENT exam: Present: normal exam, mucous membranes moist Neck exam: Present: normal inspection. Absent: tenderness, meningismus, lymphadenopathy Respiratory exam: Present: normal lung sounds bilaterally. Absent: respiratory distress, wheezes, rales, rhonchi, stridor Cardiovascular Exam: Present: regular rate, normal rhythm, normal heart sounds. Absent: systolic murmur, diastolic murmur, rubs, gallop, clicks GI/Abdominal exam: Present: soft, normal bowel sounds. Absent: distended, tenderness, guarding, rebound, rigid Rectal exam: Present: deferred Extremities exam: Present: normal capillary refill, other (Decreased ROM of RIGHT shoulder secondary to pain, decreased ROM of LEFT shoulder chronically. Right shoulder with palpable humeral head which feels anteriorly displaced. Normal radial and ulnar pulse in RUE, normal cap refil and sensation of RIGHT arm. ). Absent: full ROM Neurological exam: Present: alert, oriented X3 Psychiatric exam: Present: normal affect Skin exam: Present: warm, dry, intact, normal color. Absent: rash, cyanosis, erythema Course Vital Signs 09/05/16 09/05/16 09/05/16 16:39 18:54 20:29 Temperature 99.2 F Pulse Rate 96 99 95 Respiratory 20 18 18 Rate Blood Pressure 121/80 166/109 164/115 O2 Sat by Pulse 96 99 96 Oximetry 09/05/16 20:53 Temperature 98 F Pulse Rate 88 Respiratory 18 Rate Blood Pressure 157/68 O2 Sat by Pulse 98 Oximetry - Reevaluation(s) Reevaluation #1: Patient continues to sit comfortably in the ER [facility]. Advised patient that x- rays consistent with a superior dislocation. Patient declined any medications prior to planned reduction. 09/05/16 18:07 09/05/16 19:10 Return to the room with child life assistant to attempt reduction. Patient was able to apply weight to her hand to shuffle her body over. She states that she has no problem bearing weight on the arm it just hurts to abduct. Attempted reduction with traction countertraction, the patient had mildly increased range of motion however there is still palpable defect. Ricardo patient's orthopedic surgeon for further instruction. Reevaluation #2: Advised the patient we are still awaiting callback from her orthopedic surgeon. Patient sitting comfortably in ER gurney 09/05/16 19:11 Reevaluation #3: Is called back to the patient's room, patient states she doesn't feel comfortable going home like this and would like to know if Dr. Marlow can valuate her tonight. I advised her that it is unlikely however I will call his PSYCHIATRIC CNS back to discuss this. 09/05/16 20:05 Medical Decision Making - Medical Decision Making Patient seen and evaluated, history of feeling that shoulder is out of place after reaching across her body to grab her seat belt yesterday. No falls, no head trauma, no neck pain Dedicated xray ordered Patient declined analgesia Patient able to bear weight on arm, limited in abduction Xray with superior subluxation, attempted reduction with traction/ countertraction Orthopedics was called for further recommendations Patient care discussed with PARVIZ Valdes for Dr. Marlow who states patient can be discharged home in sling, patient is to call the office on Thursday for follow up Plan was discussed with patient who states she wanted her arm fixed today but will follow up Thursday as advised by Orthopedic. Care was discussed with the patient's daughter Dr. Nel Richards who expresses frustration that the patient's shoulder was not able to be reduced today but expresses understanding. She will come to the ED to mixing picker tender her mother and transfer her to an outside hospital and has in-house orthopedics. Patient was discharged in the care of her daughter Disposition Clinical Impression: Dislocation of shoulder region Disposition: HOME SELF-CARE Condition: Good Instructions: Shoulder Dislocation (ED) Referrals: Chema Clifton MD [Primary Care Provider] - 1-2 days Morgan Marlow DO [Doctor of Osteopathic Medicine] - 1-2 days
[2016-09-05 19:01] VITALS: RESP 18
[2016-09-05 20:53] VITALS: BP 157/68; PULSE 88; TEMP 98
== END 2016-09-05 21:16 | disposition home or self-care (01) ==
LOC: EC 16:09
DX: S43.004A Unspecified dislocation of right shoulder joint, initial encounter (principal); M19.90 Unspecified osteoarthritis, unspecified site; I10 Essential (primary) hypertension; Z79.899 Other long term (current) drug therapy; Z88.2 Allergy status to sulfonamides; Z88.6 Allergy status to analgesic agent; X50.1XXA Overexertion from prolonged static or awkward postures, initial encounter; Y93.89 Activity, other specified
CPT/HCPCS: 99283

== ENCOUNTER → 2016-10-01 | Outpatient (CLI) | payer MEDICARE, BC ==
--- NOTE | 2016-10-01 11:32 | XR ---
EXAMINATION TYPE: XR shoulder complete LT DATE OF EXAM: 10/01/2016 COMPARISON: NONE HISTORY: Left shoulder pain TECHNIQUE: 3 views of the left shoulder were obtained. FINDINGS: Anterior first left humeral arthroplasty is present, with a cephalad orientation of the jono tabular component. Although there is overlap of the humeral component and acetabular component in all views there is fracture of the middle screw. The humeral head is also high riding related to the known rotator cuff injury. Heterotopic ossificati on and generalized osteopenia are also incidentally noted. IMPRESSION: Prosthetic screw fracture of the glenoid component of the reverse total left humeral arth roplasty, progressed from the prior with cephalad direction of the glenoid component.
== END ==
LOC: RADXRMAIN 11:10
PROVIDERS: ATTEND Orthopaedic Surgery
DX: T84.111A Breakdown (mechanical) of internal fixation device of left humerus, initial encounter (principal); X58.XXXA Exposure to other specified factors, initial encounter

== ENCOUNTER 2016-10-03 14:50 | Emergency (ER) | payer MEDICARE, BC ==
[2016-10-03 15:03] VITALS: BP 157/94; PULSE 95; RESP 16; TEMP 98
--- NOTE | 2016-10-03 15:24 | ED ---
General Adult HPI - General Chief complaint: Fall Stated complaint: Fall Time Seen by Provider: 10/03/16 15:12 Source: patient, RN notes reviewed Mode of arrival: wheelchair Limitations: no limitations - History of Present Illness Initial comments: Patient is a pleasant 86-year-old female presenting to the emergency department following a fall. Patient picked up a 2 gallon bucket and then fell to steps up the front porch. Patient thinks she did lightly strike her right side of the head however states it was mild. No loss of consciousness. No neck or back pain. Patient does complain of right posterior rib pain. No abdominal pain. Patient was able to get up and ambulate without difficulty. No arm pain except for chronic shoulder pain. Patient is an eliquis for atrial fibrillation. - Related Data Home Medications Medication Instructions Recorded Confirmed Royce Cit/Mag/D3/Zn/Gambling Monitor/Madhu/Bor 2 tab PO BID 07/22/13 10/03/16 [Citracal-Vit D + Magnesium Tab] Calcium Carbonate/Vitamin D3 1 tab PO BID 07/22/13 10/03/16 [Caltrate 600 + D Tablet] Multivitamins, Thera [Multivitamin] 1 tab PO DAILY 07/22/13 10/03/16 Nitroglycerin Sl Tabs [Nitrostat] 0.4 mg SUBLINGUAL Q5M PRN 07/22/13 10/03/16 Furosemide [Lasix] 20 mg PO Q48H 09/05/16 10/03/16 Ipratropium [place] 0.06%Nasal 2 spray EA NOSTRIL BID 09/05/16 10/03/16 [Atrovent Nasal 0.06%] Metoprolol Succinate (ER) [Toprol 25 mg PO HS 09/05/16 10/03/16 Xl] Potassium Chloride ER [K-Dur 10] 10 meq PO Q48H 09/05/16 10/03/16 Previous Rx's Medication Instructions Recorded Apixaban [Eliquis] 2.5 mg PO BID #60 tablet 04/08/16 Allergies Allergy/AdvReac Type Severity Reaction Status Date / Time Sulfa (Sulfonamide Allergy Unknown Nausea & Verified 10/03/16 15:33 Antibiotics) Vomiting lactose AdvReac Unknown Abdominal Verified 10/03/16 15:33 Pain NSAIDS (Non-Steroidal AdvReac Unknown Unknown Verified 10/03/16 15:33 Anti-Inflamma Review of Systems ROS Statement: Those systems with pertinent positive or pertinent negative responses have been documented in the HPI. ROS Other: All systems not noted in ROS Statement are negative. Constitutional: Denies: fever Eyes: Denies: eye pain ENT: Denies: ear pain Respiratory: Denies: cough, dyspnea Cardiovascular: Denies: chest pain Endocrine: Denies: fatigue Gastrointestinal: Denies: abdominal pain Genitourinary: Denies: dysuria Musculoskeletal: Reports: other (Right posterior rib pain) Skin: Denies: rash Neurological: Denies: weakness Psychiatric: Denies: depression Past Medical History Past Medical History: Atrial Fibrillation, Chest Pain / Angina, GERD/Reflux, Hyperlipidemia, Hypertension, Osteoarthritis (OA) Additional Past Medical History / Comment(s): Leaky heart valve, high cholesterol being monitored, IBS, rectal prolapse, hemorrhoids, gastric ulcer, possible kidney stones, UTI, occasional back pain, head injury in 2001-no residual effect, L carpal tunnel syndrome, sinus problem recently, OA multiple joints-especially in neck. History of Any Multi-Drug Resistant Organisms: None Reported Past Surgical History: Cholecystectomy, Heart Catheterization With Stent, Joint Replacement, Orthopedic Surgery Additional Past Surgical History / Comment(s): 05/2012 cardiac stent to RCA, VAGOTOMY for stomach ulcer, ENEDINA ROTATOR CUFF REPAIR, left shoulder reverse arthroplasty, bilateral cataracts, L breast benign bx, EGD, colonoscopy. Past Anesthesia/Blood Transfusion Reactions: No Reported Reaction Date of Last Stent Placement:: 05/2012 Past Psychological History: No Psychological Hx Reported Smoking Status: Never smoker Past Alcohol Use History: Rare Past Drug Use History: None Reported - Past Family History Father Family Medical History: Coronary Artery Disease (CAD), Diabetes Mellitus Mother Family Medical History: Osteoarthritis (OA) General Exam Limitations: no limitations General appearance: alert, in no apparent distress Head exam: Present: atraumatic, normocephalic Eye exam: Present: normal appearance, PERRL, EOMI. Absent: nystagmus ENT exam: Present: normal oropharynx Neck exam: Present: normal inspection, full ROM. Absent: tenderness Respiratory exam: Present: normal lung sounds bilaterally Cardiovascular Exam: Present: regular rate, irregular rhythm GI/Abdominal exam: Present: soft. Absent: tenderness Extremities exam: Present: normal inspection, full ROM. Absent: tenderness Back exam: Present: tenderness (Patient does have mild to moderate tenderness beneath the right scapula and above the right CVA region.). Absent: paraspinal tenderness, vertebral tenderness Neurological exam: Present: alert, oriented X3, CN II-XII intact. Absent: motor sensory deficit Expanded Patient oriented to: Present: person, place, time Speech: Present: fluid speech Cranial nerves: EOM's Intact: Normal, Facial Sensation: Normal Sensory exam: Upper Extremity Light Touch: Normal, Lower Extremity Light Touch: Normal Motor strength exam: RUE: 5, LUE: 5, RLE: 5, LLE: 5 Eye Response: (4) open spontaneously Motor Response: (6) obeys commands Verbal Response: (5) oriented Psychiatric exam: Present: normal affect, normal mood Skin exam: Present: normal color Course Vital Signs 10/03/16 14:57 Temperature 98.0 F Pulse Rate 95 Respiratory 16 Rate Blood Pressure 157/94 O2 Sat by Pulse 96 Oximetry - Reevaluation(s) Reevaluation #1: 10/03/16 15:21 Case was discussed with Dr. Moreno. EKG Findings - EKG Comments: EKG Findings:: A. fib with rate of 99. QRS 70. QT 344. QTC 441. Normal axis. Septal Q waves. No acute ST change. Medical Decision Making - Medical Decision Making Patient reevaluated and resting comfortably in bed. Patient and family updated on results and need for follow-up. Patient does have tramadol at home. - Lab Data Result diagrams: 10/03/16 15:15 10/03/16 15:15 Lab Results 10/03/16 10/03/16 10/03/16 Range/Units 15:15 15:15 15:15 WBC 6.5 (3.8-10.6) k/uL RBC 4.29 (3.80-5.40) m/uL Hgb 13.5 (11.4-16.0) gm/dL Hct 40.6 (34.0-46.0) % MCV 94.6 (80.0-100.0) fL MCH 31.4 (25.0-35.0) pg MCHC 33.2 (31.0-37.0) g/dL RDW 14.8 (11.5-15.5) % Plt Count 181 (150-450) k/uL Neutrophils % 77 % Lymphocytes % 14 % Monocytes % 7 % Eosinophils % 0 % Basophils % 0 % Neutrophils # 5.0 (1.3-7.7) k/uL Lymphocytes # 0.9 L (1.0-4.8) k/uL Monocytes # 0.4 (0-1.0) k/uL Eosinophils # 0.0 (0-0.7) k/uL Basophils # 0.0 (0-0.2) k/uL PT (9.0-12.0) sec INR (<1.2) APTT (22.0-30.0) sec Sodium 134 L (137-145) mmol/L Potassium 4.9 (3.5-5.1) mmol/L Chloride 97 L (98-107) mmol/L Carbon Dioxide 26 (22-30) mmol/L Anion Gap 11 mmol/L BUN 25 H (7-17) mg/dL Creatinine 1.00 (0.52-1.04) mg/dL Est GFR (MDRD) Af Amer >60 (>60 ml/min/1.73 sqM) Est GFR (MDRD) Non-Af 52 (>60 ml/min/1.73 sqM) Glucose 83 (74-99) mg/dL Plasma Lactic Acid Renan (0.7-2.0) mmol/L Calcium 9.5 (8.4-10.2) mg/dL Total Bilirubin 0.6 (0.2-1.3) mg/dL AST 87 H (14-36) U/L ALT 97 H (9-52) U/L Alkaline Phosphatase 105 (38-126) U/L Total Creatine Kinase (30-135) U/L CK-MB (CK-2) (0.0-2.4) ng/mL CK-MB (CK-2) Rel Index Troponin I (0.000-0.034) ng/mL Total Protein 7.0 (6.3-8.2) g/dL Albumin 4.4 (3.5-5.0) g/dL Amylase 105 (30-110) U/L Lipase 288 (23-300) U/L Serum Alcohol <10 mg/dL Blood Type A Positive Blood Type Recheck CABO Indicated Antibody Screen NEGATIVE Spec Expiration Date 10/06/2016 - 231410/03/16 10/03/16 10/03/16 Range/Units 15:15 15:15 15:15 WBC (3.8-10.6) k/uL RBC (3.80-5.40) m/uL Hgb (11.4-16.0) gm/dL Hct (34.0-46.0) % MCV (80.0-100.0) fL MCH (25.0-35.0) pg MCHC (31.0-37.0) g/dL RDW (11.5-15.5) % Plt Count (150-450) k/uL Neutrophils % % Lymphocytes % % Monocytes % % Eosinophils % % Basophils % % Neutrophils # (1.3-7.7) k/uL Lymphocytes # (1.0-4.8) k/uL Monocytes # (0-1.0) k/uL Eosinophils # (0-0.7) k/uL Basophils # (0-0.2) k/uL PT 10.1 (9.0-12.0) sec INR 1.0 (<1.2) APTT 19.8 L (22.0-30.0) sec Sodium (137-145) mmol/L Potassium (3.5-5.1) mmol/L Chloride (98-107) mmol/L Carbon Dioxide (22-30) mmol/L Anion Gap mmol/L BUN (7-17) mg/dL Creatinine (0.52-1.04) mg/dL Est GFR (MDRD) Af Amer (>60 ml/min/1.73 sqM) Est GFR (MDRD) Non-Af (>60 ml/min/1.73 sqM) Glucose (74-99) mg/dL Plasma Lactic Acid Renan 1.0 (0.7-2.0) mmol/L Calcium (8.4-10.2) mg/dL Total Bilirubin (0.2-1.3) mg/dL AST (14-36) U/L ALT (9-52) U/L Alkaline Phosphatase (38-126) U/L Total Creatine Kinase 120 (30-135) U/L CK-MB (CK-2) 3.5 H* (0.0-2.4) ng/mL CK-MB (CK-2) Rel Index 2.9 Troponin I <0.012 (0.000-0.034) ng/mL Total Protein (6.3-8.2) g/dL Albumin (3.5-5.0) g/dL Amylase (30-110) U/L Lipase (23-300) U/L Serum Alcohol mg/dL Blood Type Blood Type Recheck Antibody Screen Spec Expiration Date - Radiology Data Radiology results: image reviewed (Chest x-ray, pelvis x-ray, right rib x-ray, and computed tomography scan of brain revealed no acute abnormality.) Disposition Clinical Impression: Fall Disposition: HOME SELF-CARE Condition: Stable Instructions: Fall Prevention for Older Adults (ED), Head Injury (ED), Rib Fracture (ED) Additional Instructions: [id number] Tylenol or your tramadol as needed for pain. Return for change in mental status, confusion, weakness, difficulty breathing, worsening symptoms or other concerns. Hold eliquis for the next 2 days. Follow-up to primary care physician Thursday. Referrals: Chema Clifton MD [Primary Care Provider] - 1-2 days Time of Disposition: 16:43
[2016-10-03 15:29] LABS: Basophils % (A) 0 %; CH 32.1; Eosinophils % (A) 0 %; HCT 40.6 % (34.0-46.0); HDW 2.45; HGB 13.5 gm/dL (11.4-16.0); Luc # (Auto) 0.09; Luc % (Auto) 1; Lymphocytes # (A) 0.9 k/uL (1.0-4.8); Lymphocytes % (A) 14 %; MCH 31.4 pg (25.0-35.0); MCHC 33.2 g/dL (31.0-37.0); MCV 94.6 fL (80.0-100.0); Monocytes # (A) 0.4 k/uL (0-1.0); Monocytes % (A) 7 %; Neutrophils % (A) 77 %; RBC 4.29 m/uL (3.80-5.40); RDW 14.8 % (11.5-15.5); WBC 6.5 k/uL (3.8-10.6); WBC (Perox) 6.64
--- NOTE | 2016-10-03 15:34 | XR ---
AP pelvis HISTORY: Trauma and pain single frontal view of the pelvis, no comparisons Bone mineralization is reduced. Joint spaces and alignment are maintained. Degenerative disc changes are present in the visualized spine. There is scoliosis in the upper lumbar spine convex left. Probab le vascular calcifications are present within the pelvis. Surgical clips present in the right upper q uadrant. IMPRESSION: There may be limitations due to low bone mineralization. No acute fracture or dislocation is evident. Additional findings above.
[2016-10-03 15:45] LABS: ALT 97 U/L (9-52); AST 87 U/L (14-36); Alcohol <10 mg/dL; Alkaline Phosphatase 105 U/L (38-126); Amylase 105 U/L (30-110); Anion Gap 11 mmol/L; Blood Urea Nitrogen 25 mg/dL (7-17); Calcium 9.5 mg/dL (8.4-10.2); Carbon Dioxide 26 mmol/L (22-30); Chloride 97 mmol/L (98-107); Glucose 83 mg/dL (74-99); Non-African American GFR(MDRD) 52 (>60 ml/min/1.73 sqM); Potassium 4.9 mmol/L (3.5-5.1); Sodium 134 mmol/L (137-145); Total Bilirubin 0.6 mg/dL (0.2-1.3)
--- NOTE | 2016-10-03 15:49 | XR ---
EXAMINATION TYPE: XR chest 1V portable DATE OF EXAM: 10/03/2016 COMPARISON: Prior chest x-ray 04/07/2016 HISTORY: Trauma, posterior rib pain TECHNIQUE: Single frontal view of the chest is obtained. FINDINGS: The heart is enlarged. Postop change noted to the left shoulder and right shoulder. The ri ght shoulder is high riding which may be due to chronic rotator cuff tear. Surgical clips present at the gastroesophageal junction level. There are overlying cardiac leads which could obscure detail. Lo w bone mineralization may reduce sensitivity. Spinal curvature present. Degenerative disc changes are present in the visualized spine. There is no pneumothorax, difficult to exclude a small right pleura l effusion. IMPRESSION: Cardiomegaly. Exam is rotated. Difficult to exclude a small effusion. Postop changes. Ad ditional findings above.
[2016-10-03 15:50] LABS: Prothrombin Time 10.1 sec (9.0-12.0)
[2016-10-03 15:52] LABS: Creatine Kinase 120 U/L (30-135)
[2016-10-03 16:02] LABS: Partial Thromboplastin Time 19.8 sec (22.0-30.0)
[2016-10-03 16:05] LABS: Troponin I <0.012 ng/mL (0.000-0.034)
--- NOTE | 2016-10-03 16:09 | CT ---
EXAMINATION TYPE: CT brain wo con DATE OF EXAM: 10/03/2016 COMPARISON: Prior CT brain 04/07/2016 HISTORY: Fall with injury today CT DLP: 1121 mGycm Automated exposure control for dose reduction was used. Helical acquisition through the brain FINDINGS: Periventricular white matter shows patchy low attenuation as on prior exam. Cortical atrophy is prese nt. There is no hemorrhage or hydrocephalus. Calvarium is intact. Paranasal sinuses and mastoid air c ells as visualized are normal. Cerebral vascular calcifications are present. Orbits show symmetric ap pearance. IMPRESSION: STABLE EXAM, NO ACUTE ABNORMALITY IS EVIDENT.
[2016-10-03 16:11] LABS: Creatine Kinase MB 3.5 ng/mL (0.0-2.4)
--- NOTE | 2016-10-03 16:34 | XR ---
EXAMINATION TYPE: XR ribs RT DATE OF EXAM: 10/03/2016 COMPARISON: NONE HISTORY: Fall and right posterior rib pain. TECHNIQUE: 2 views of the right ribs were obtained. FINDINGS: No evidence of displaced rib fracture is identified. Generalized osseous demineralization i s appreciated throughout the osseous structures. Reticular opacity is seen within the right lung base and may relate to scattered atelectasis or interstitial lung disease. Rotator cuff repair is seen on the right in the humeral head is high riding. IMPRESSION: No displaced rib fracture.
[2016-10-03] MEDS ORDERED: traMADol 50 MG STARTER PACK 3 TAB BTL PO STA (16:58)
== END 2016-10-03 17:12 | disposition home or self-care (01) ==
LOC: EC 14:50
DX: R07.81 Pleurodynia (principal); S09.90XA Unspecified injury of head, initial encounter; I48.91 Unspecified atrial fibrillation; I10 Essential (primary) hypertension; R40.2142 Coma scale, eyes open, spontaneous, at arrival to emergency department; R40.2252 Coma scale, best verbal response, oriented, at arrival to emergency department; R40.2362 Coma scale, best motor response, obeys commands, at arrival to emergency department; Z79.01 Long term (current) use of anticoagulants; Z79.899 Other long term (current) drug therapy; Z88.2 Allergy status to sulfonamides; Z88.6 Allergy status to analgesic agent; W10.9XXA Fall (on) (from) unspecified stairs and steps, initial encounter; Y92.009 Unspecified place in unspecified non-institutional (private) residence as the place of occurrence of the external cause
CPT/HCPCS: 36415; 70450; 71010; 72170; 80053; 80320; 82150; 82550; 82553; 83605; 83690; 84484; 85025; 85610; 85730; 86850; 86900; 86901; 93005; 99284

== ENCOUNTER → 2016-10-21 | Outpatient (CLI) | payer MEDICARE, BC ==
[2016-10-21 12:00] LABS: Anion Gap 9 mmol/L; Blood Urea Nitrogen 16 mg/dL (7-17); Carbon Dioxide 28 mmol/L (22-30); Chloride 96 mmol/L (98-107); Non-African American GFR(MDRD) 52 (>60 ml/min/1.73 sqM); Potassium 5.2 mmol/L (3.5-5.1); Sodium 133 mmol/L (137-145)
== END | disposition home or self-care (01) ==
LOC: LABWHC1 11:16
PROVIDERS: ATTEND Internal Medicine Interventional Cardiology
DX: I10 Essential (primary) hypertension (principal)
CPT/HCPCS: 36415; 80051; 82565; 84520

== ENCOUNTER → 2016-11-06 | Outpatient (CLI) | payer MEDICARE, BC ==
[2016-11-06 11:31] LABS: Anion Gap 8 mmol/L; Blood Urea Nitrogen 16 mg/dL (7-17); Carbon Dioxide 29 mmol/L (22-30); Chloride 93 mmol/L (98-107); Non-African American GFR(MDRD) 52 (>60 ml/min/1.73 sqM); Potassium 4.8 mmol/L (3.5-5.1); Sodium 130 mmol/L (137-145)
== END | disposition home or self-care (01) ==
LOC: LABWHC1 10:35
PROVIDERS: ATTEND Internal Medicine Interventional Cardiology
DX: E87.5 Hyperkalemia (principal)
CPT/HCPCS: 36415; 80051; 82565; 84520

== ENCOUNTER → 2017-03-20 | Outpatient (CLI) | payer MEDICARE, BC ==
[2017-03-20 12:01] LABS: Albumin 4.3 g/dL (3.5-5.0); Calcium 9.5 mg/dL (8.4-10.2); Potassium 4.4 mmol/L (3.5-5.1); Total Bilirubin 0.9 mg/dL (0.2-1.3); Total Protein 6.8 g/dL (6.3-8.2)
[2017-03-20 12:14] LABS: T4, Free (Free Thyroxine) 1.54 ng/dL (0.78-2.19)
[2017-03-20 23:24] LABS: Basophils % (A) 1 %; Eosinophils # (A) 0.1 k/uL (0-0.7); Eosinophils % (A) 1 %; HCT 42.1 % (34.0-46.0); HGB 13.5 gm/dL (11.4-16.0); Lymphocytes # (A) 1.1 k/uL (1.0-4.8); Lymphocytes % (A) 27 %; MCH 31.1 pg (25.0-35.0); MCV 97.2 fL (80.0-100.0); Mean Platelet Volume 8.5; Monocytes # (A) 0.3 k/uL (0-1.0); Monocytes % (A) 8 %; Neutrophils # (A) 2.6 k/uL (1.3-7.7); Neutrophils % (A) 62 %; Platelet Count 184 k/uL (150-450); RBC 4.33 m/uL (3.80-5.40); RDW 14.3 % (11.5-15.5); WBC 4.1 k/uL (3.8-10.6)
== END | disposition home or self-care (01) ==
LOC: LABWHC1 11:07
PROVIDERS: ATTEND Internal Medicine
DX: E78.5 Hyperlipidemia, unspecified (principal); I10 Essential (primary) hypertension
CPT/HCPCS: 36415; 80053; 80061; 84439; 84443; 85025

== ENCOUNTER → 2017-09-10 | Outpatient (CLI) | payer MEDICARE, BC ==
--- NOTE | 2017-09-10 12:59 | XR ---
EXAMINATION TYPE: XR shoulder complete RT DATE OF EXAM: 09/10/2017 CLINICAL HISTORY: Follow-up for a reverse shoulder arthroplasty. TECHNIQUE: Three views of the right shoulder are obtained. COMPARISON: None. FINDINGS: A new right reverse total shoulder arthroplasty is seen appearing in appropriate anatomic a lignment on all 3 views without dislocation. No periprosthetic lucency is seen to suggest loosening. Some heterotopic ossification is noted. No [place] bone fracture. Osseous structures are generally dem ineralized. IMPRESSION: Appropriate postoperative anatomic alignment of the right reverse total shoulder arthropl asty.
== END | disposition home or self-care (01) ==
LOC: RADXRMAIN 12:09
PROVIDERS: ATTEND Orthopaedic Surgery
DX: Z47.1 Aftercare following joint replacement surgery (principal); Z96.611 Presence of right artificial shoulder joint

== ENCOUNTER → 2017-10-01 | Outpatient (CLI) | payer MEDICARE, BC ==
[2017-10-01 10:35] LABS: HCT 33.4 % (34.0-46.0); HGB 11.5 gm/dL (11.4-16.0); MCHC 34.3 g/dL (31.0-37.0); MCV 96.3 fL (80.0-100.0); Mean Platelet Volume 6.5; Platelet Count 198 k/uL (150-450); RBC 3.47 m/uL (3.80-5.40); RDW 14.1 % (11.5-15.5); WBC 3.5 k/uL (3.8-10.6)
[2017-10-01 10:52] LABS: Albumin 3.9 g/dL (3.5-5.0); Calcium 9.3 mg/dL (8.4-10.2); Potassium 5.2 mmol/L (3.5-5.1); Total Bilirubin 0.7 mg/dL (0.2-1.3); Total Protein 6.3 g/dL (6.3-8.2)
== END | disposition home or self-care (01) ==
LOC: LABWHC1 10:09
PROVIDERS: ATTEND Internal Medicine Interventional Cardiology
DX: I48.1 Persistent atrial fibrillation (principal)
CPT/HCPCS: 36415; 80053; 85027

== ENCOUNTER → 2017-11-03 | Outpatient (CLI) | payer MEDICARE, BC ==
--- NOTE | 2017-11-05 13:00 | XR ---
Right shoulder HISTORY: Status post shoulder arthroplasty 2 months prior 4 views of the right shoulder on 6 images Correlation to prior right shoulder dated 09/10/2017 There is no significant interval change. Reverse shoulder arthroplasty change is again noted. Alignme nt is anatomic. Right lung apex as visualized is stable. Suspect postop changes to the acromioclavicu lar joint. IMPRESSION: Orthopedic Follow up.
== END | disposition home or self-care (01) ==
LOC: RADXRMAIN 10:05
PROVIDERS: ATTEND Orthopaedic Surgery
DX: Z47.89 Encounter for other orthopedic aftercare (principal); Z96.611 Presence of right artificial shoulder joint

== ENCOUNTER → 2017-11-17 | Outpatient (CLI) | payer MEDICARE, BC ==
[2017-11-17 11:20] LABS: Albumin 3.9 g/dL (3.5-5.0); Calcium 9.5 mg/dL (8.4-10.2); Potassium 4.7 mmol/L (3.5-5.1); Total Bilirubin 0.6 mg/dL (0.2-1.3); Total Protein 6.6 g/dL (6.3-8.2)
== END | disposition home or self-care (01) ==
LOC: LABWHC1 10:02
PROVIDERS: ATTEND Internal Medicine Interventional Cardiology
DX: I10 Essential (primary) hypertension (principal)
CPT/HCPCS: 36415; 80053

== ENCOUNTER → 2017-12-25 | Outpatient (CLI) | payer MEDICARE, BC ==
--- NOTE | 2017-12-25 12:27 | XR ---
EXAMINATION TYPE: XR shoulder complete BILAT DATE OF EXAM: 12/25/2017 COMPARISON: NONE HISTORY: Pain TECHNIQUE: Bilateral Shoulders examined in 3 views each. FINDINGS: Left shoulder: There is a left humeral prosthesis and glenoid prosthesis. Acromioclavicular junction is normal. No acute fractures are evident. There may be some elevation of the cortex along the proxi mal humerus. Correlate for pain. Note is made of a fractured glenoid screw. Right shoulder: There is a right humeral prosthesis and glenoid prosthesis. Degenerative changes are at the acromioclavicular junction. No acute fractures are evident. There may be some elevation of the cortex along the proximal humerus. Correlate for pain. This is symmetrical to contralateral left abel e. A follow up study can be performed 7-10 days from acute trauma for continued pain. IMPRESSION: 1. Bilateral shoulder prostheses. No acute fractures are evident. 2. Degenerative acromioclavicular joint changes on the right. 3. There is some mild elevation of the cortex of the proximal humeri likely related to prior surgery. No acute fractures are evident. Correlate with location of pain.
== END | disposition home or self-care (01) ==
LOC: RADXRMAIN 11:40
PROVIDERS: ATTEND Orthopaedic Surgery
DX: Z47.1 Aftercare following joint replacement surgery (principal); M19.011 Primary osteoarthritis, right shoulder; Z96.611 Presence of right artificial shoulder joint; Z96.612 Presence of left artificial shoulder joint

== ENCOUNTER 2018-03-01 23:47 | Observation (INO) | payer MEDICARE, BC ==
[2018-03-02] MEDS ORDERED: HYDROcodone/APAP 7.5-325MG 1 EACH TAB PO ONE (00:02)
--- NOTE | 2018-03-02 00:05 | ED ---
Chest Pain HPI - General Stated Complaint: chest pain Time Seen by Provider: 03/01/18 23:52 - History of Present Illness Initial Comments: This is an 88-year-old male with a history of CAD with a stent, atrial fibrillation who presents emergent department for chest pain. She states that it started approximately one hour prior to arrival. She states she was going to pressure teeth when she suddenly had a sharp substernal chest discomfort. She states it did not radiate. She had no associated lightheadedness or dizziness. No nausea or vomiting. She states that she immediately called an ambulance. She tried laying down to see if that would relieve her pain however states that it seemed to make it worse. She states that she's never had anything like this previously. She did take a nitro at home which she states did not improve her symptoms at all. She was given 2 more nitro in route and also an aspirin in route. This seemed to improve her symptoms. She is currently complaining of pain that is an 8 out of 10. No cough or shortness of breath. No recent travel or surgeries. No recent history of PE or DVT. No other acute complaints. She follows with Dr. Banks for cardiology and states that her last stress test was over a year ago. - Related Data Home Medications Medication Instructions Recorded Confirmed Royce Cit/Mag/D3/Zn/Migration Agent/Madhu/Bor 2 tab PO BID 07/22/13 02/05/17 [Citracal-Vit D + Magnesium Tab] Calcium Carbonate/Vitamin D3 1 tab PO BID 07/22/13 02/05/17 [Caltrate 600 + D Tablet] Nitroglycerin Sl Tabs [Nitrostat] 0.4 mg SUBLINGUAL Q5M PRN 07/22/13 02/05/17 Furosemide [Lasix] 20 mg PO BID 09/05/16 02/05/17 Ipratropium [place] 0.06%Nasal 2 spray EA NOSTRIL BID 09/05/16 02/05/17 [Atrovent Nasal 0.06%] Cholecalciferol (Vitamin D3) 2,000 unit PO DAILY 12/24/16 02/05/17 [Vitamin D3] HYDROcodone/APAP 5-325MG [[place] 1 tab PO TID PRN 12/24/16 02/05/17 5-325] Metoprolol Tartrate [Lopressor] 25 mg PO DAILY 12/24/16 02/05/17 Multivit-Min/Iron/Folic/Lutein 1 each PO DAILY 12/24/16 02/05/17 [Centrum Silver Women Tablet] Previous Rx's Medication Instructions Recorded Apixaban [Eliquis] 2.5 mg PO BID #60 tablet 04/08/16 Allergies Allergy/AdvReac Type Severity Reaction Status Date / Time Sulfa (Sulfonamide Allergy Unknown Nausea & Verified 02/05/17 10:59 Antibiotics) Vomiting lactose AdvReac Unknown Abdominal Verified 02/05/17 10:59 Pain NSAIDS (Non-Steroidal AdvReac Unknown kidney Verified 02/05/17 10:59 Anti-Inflamma problems Review of Systems ROS Statement: Those systems with pertinent positive or pertinent negative responses have been documented in the HPI. ROS Other: All systems not noted in ROS Statement are negative. EKG Findings - EKG Comments: EKG Findings:: EKG showing intrafibrillation with a rate of 93. There is no abnormal ST segment changes or T-wave inversions. QTC is 479. Other intervals normal. No ectopy. Past Medical History Past Medical History: Atrial Fibrillation, Chest Pain / Angina, GERD/Reflux, Hyperlipidemia, Hypertension, Osteoarthritis (OA) Additional Past Medical History / Comment(s): wound anterior rt lower leg, steroid injection Oct 2016,Leaky heart valve, IBS, rectal prolapse, hemorrhoids , gastric ulcer, UTI, occasional back pain, head injury in 2001-no residual effect, L carpal tunnel syndrome, sinus problem,limited enedina shoulder motion. History of Any Multi-Drug Resistant Organisms: None Reported Past Surgical History: Cholecystectomy, Heart Catheterization With Stent, Joint Replacement, Orthopedic Surgery Additional Past Surgical History / Comment(s): 05/2012 cardiac stent to RCA, VAGOTOMY for stomach ulcer, ENEDINA ROTATOR CUFF REPAIR, left shoulder reverse arthroplasty, bilateral cataracts, L breast benign bx, EGD, colonoscopy. Past Anesthesia/Blood Transfusion Reactions: No Reported Reaction Date of Last Stent Placement:: 05/2012 Past Psychological History: No Psychological Hx Reported Additional Psychological History / Comment(s): Pt resides alone. She had L shoulder reverse arthroplasty in January 2016 and completed PT. She is still having difficulty with that shoulder. She uses no assistive device. Smoking Status: Never smoker Past Alcohol Use History: None Reported Past Drug Use History: None Reported - Past Family History Father Family Medical History: Coronary Artery Disease (CAD), Diabetes Mellitus Mother Family Medical History: Osteoarthritis (OA) General Exam - General Exam Comments Initial Comments: Constitutional: Awake alert Appears comfortable Head: Normocephalic atraumatic Eyes: no conjunctival injection No scleral icterus EOMI Neck: No JVD Supple Heart: Irregularly irregular rhythm normal S1-S2 no murmurs Lungs: Clear to auscultation bilaterally No wheezing No rales Abdomen: Soft nondistended nontender Extremities: Non edematous DP pulses intact Radial pulses intact Neuro: A&Ox3 No focal neurologic deficits Psych: Appropriate mood and affect Course Vital Signs 03/02/18 00:04 Temperature 97.6 F Pulse Rate 89 Respiratory 16 Rate O2 Sat by Pulse 99 Oximetry Chest Pain MDM - MDM Is an 88-year-old female to history of CAD and H of fibrillation. The patient had some chest pain this evening. Nitroglycerin did seem to improve her pain slightly however the [place] seemed to take it all the way away. The patient has no evidence for ischemia on her EKG. Troponin was negative. Due to her history she needs further cardiac evaluation in the hospital. I spoke with Dr. Clifton who requested that [place] emergency department physicians be notified. Dr. Colunga accepted the admission. Cardiology consult was placed and the patient was placed on heparin. Patient was updated and agrees. Disposition Clinical Impression: Chest pain Disposition: ADMITTED IP TO THIS HOSP Condition: Stable Referrals: Chema Clifton MD [Primary Care Provider] - 1-2 days
[2018-03-02 00:36] LABS: Basophils % (A) 0 %; Eosinophils # (A) 0.1 k/uL (0-0.7); Eosinophils % (A) 2 %; HCT 35.5 % (34.0-46.0); HGB 11.9 gm/dL (11.4-16.0); Lymphocytes # (A) 1.1 k/uL (1.0-4.8); Lymphocytes % (A) 30 %; MCHC 33.6 g/dL (31.0-37.0); MCV 95.4 fL (80.0-100.0); Monocytes # (A) 0.3 k/uL (0-1.0); Monocytes % (A) 7 %; Neutrophils # (A) 2.1 k/uL (1.3-7.7); Neutrophils % (A) 59 %; Platelet Count 133 k/uL (150-450); RBC 3.72 m/uL (3.80-5.40); RDW 13.7 % (11.5-15.5); WBC 3.6 k/uL (3.8-10.6)
--- NOTE | 2018-03-02 00:40 | XR ---
EXAMINATION TYPE: XR chest 2V DATE OF EXAM: 03/02/2018 COMPARISON: 10/03/2016 HISTORY: Chest pain TECHNIQUE: Frontal and lateral views of the chest are obtained. FINDINGS: Heart is enlarged. There is pulmonary hyperinflation. There is slight blunting of costophr enic angles. There is no heart failure. There is bilateral shoulder prosthesis. There is osteopenia. IMPRESSION: Small pleural effusions unchanged. No heart failure.
[2018-03-02 00:46] LABS: Albumin 3.6 g/dL (3.5-5.0); Calcium 9.2 mg/dL (8.4-10.2); Magnesium 2.3 mg/dL (1.6-2.3); Potassium 4.1 mmol/L (3.5-5.1); Total Bilirubin 0.5 mg/dL (0.2-1.3); Total Protein 6.1 g/dL (6.3-8.2)
[2018-03-02 00:54] LABS: Partial Thromboplastin Time 21.3 sec (22.0-30.0); Prothrombin Time 10.4 sec (9.0-12.0)
[2018-03-02 01:08] LABS: Troponin I <0.012 ng/mL (0.000-0.034)
[2018-03-02] MEDS ORDERED: HEPARIN SODIUM,PORCINE 5,000 UNIT/ML 1 ML VIAL IV ONE (01:14)
[2018-03-02] MEDS ORDERED: NITROGLYCERIN SL TABS 0.4 MG TAB SUBLINGUAL PRN ×2 (01:14→01:35)
[2018-03-02] MEDS ORDERED: HEPARIN SOD,PORK IN 0.45% NACL 25,000 UNIT in 0.45% NACL 1 250ML.BAG IV SCH (01:15)
[2018-03-02] MEDS ORDERED: MORPHINE SULFATE 2 MG/ML SYRINGE IVP STA (01:29)
[2018-03-02] MEDS ORDERED: ACETAMINOPHEN TAB 325 MG TAB PO PRN (01:33)
[2018-03-02] MEDS ORDERED: HYDROcodone/APAP 5-325MG 1 EACH TAB PO PRN (01:35)
--- NOTE | 2018-03-02 01:43 | P.HPIM ---
History of Present Illness H&P Date: 03/02/18 Chief Complaint: CP 88-year-old male with a history of CAD with a stent, atrial fibrillation who presents emergent department for chest pain. She states that it started approximately one hour prior to arrival.at 11:00pm. She was just on her computer when it started. It is sharp, no radiation. She had no associated lightheadedness or dizziness. No nausea or vomiting. No sob. She tried laying down to see if that would relieve her pain however states that it seemed to make it worse. She states that she's never had anything like this previously. She did take a nitro at home which she states did not improve her symptoms at all. When pain started it was 10+/10 currently 8/10. She was given 2 more nitro in route and also an aspirin in route to er. No recent travel or surgeries. No recent history of PE or DVT. No other acute complaints. She follows with Dr. Banks for cardiology and states that her last stress test was over a year ago. Review of Systems 12 point review of system performed, negative except HPI Past Medical History Past Medical History: Atrial Fibrillation, Chest Pain / Angina, GERD/Reflux, Hyperlipidemia, Hypertension, Osteoarthritis (OA) Additional Past Medical History / Comment(s): wound anterior rt lower leg, steroid injection Oct 2016,Leaky heart valve, IBS, rectal prolapse, hemorrhoids , gastric ulcer, UTI, occasional back pain, head injury in 2001-no residual effect, L carpal tunnel syndrome, sinus problem,limited enedina shoulder motion. History of Any Multi-Drug Resistant Organisms: None Reported Past Surgical History: Cholecystectomy, Heart Catheterization With Stent, Joint Replacement, Orthopedic Surgery Additional Past Surgical History / Comment(s): 05/2012 cardiac stent to RCA, VAGOTOMY for stomach ulcer, ENEDINA ROTATOR CUFF REPAIR, left shoulder reverse arthroplasty, bilateral cataracts, L breast benign bx, EGD, colonoscopy. Past Anesthesia/Blood Transfusion Reactions: No Reported Reaction Date of Last Stent Placement:: 05/2012 Past Psychological History: No Psychological Hx Reported Additional Psychological History / Comment(s): Pt resides alone. She had L shoulder reverse arthroplasty in January 2016 and completed PT. She is still having difficulty with that shoulder. She uses no assistive device. Smoking Status: Never smoker Past Alcohol Use History: None Reported Past Drug Use History: None Reported - Past Family History Father Family Medical History: Coronary Artery Disease (CAD), Diabetes Mellitus Mother Family Medical History: Osteoarthritis (OA) Medications and Allergies Home Medications Medication Instructions Recorded Confirmed Type Royce Cit/Mag/D3/Zn/Vegetable I Farmworker/Madhu/Bor 2 tab PO BID 07/22/13 02/05/17 History [Citracal-Vit D + Magnesium Tab] Calcium Carbonate/Vitamin D3 1 tab PO BID 07/22/13 02/05/17 History [Caltrate 600 + D Tablet] Nitroglycerin Sl Tabs [Nitrostat] 0.4 mg SUBLINGUAL Q5M PRN 07/22/13 02/05/17 History Apixaban [Eliquis] 2.5 mg PO BID #60 tablet 04/08/16 02/05/17 Rx Furosemide [Lasix] 20 mg PO BID 09/05/16 02/05/17 History Ipratropium Omer 0.06%Nasal 2 spray EA NOSTRIL BID 09/05/16 02/05/17 History [Atrovent Nasal 0.06%] Cholecalciferol (Vitamin D3) 2,000 unit PO DAILY 12/24/16 02/05/17 History [Vitamin D3] HYDROcodone/APAP 5-325MG [[place] 1 tab PO TID PRN 12/24/16 02/05/17 History 5-325] Metoprolol Tartrate [Lopressor] 25 mg PO DAILY 12/24/16 02/05/17 History Multivit-Min/Iron/Folic/Lutein 1 each PO DAILY 12/24/16 02/05/17 History [Centrum Silver Women Tablet] Allergies Allergy/AdvReac Type Severity Reaction Status Date / Time Sulfa (Sulfonamide Allergy Unknown Nausea & Verified 02/05/17 10:59 Antibiotics) Vomiting lactose AdvReac Unknown Abdominal Verified 02/05/17 10:59 Pain NSAIDS (Non-Steroidal AdvReac Unknown kidney Verified 02/05/17 10:59 Anti-Inflamma problems Physical Exam Vitals: Vital Signs Temp Pulse Resp Pulse Ox 03/02/18 00:04 97.6 F 89 16 99 Intake and Output 03/01/18 03/01/18 03/02/18 14:59 22:59 06:59 Other: Weight 46.72 kg Constitutional: No acute distress, conversant, pleasant Eyes:Anicteric sclerae, moist conjunctiva, no lid-lag, PERRLA, ENMT: Oropharynx clear, no erythema, exudates Neck: Supple, FROM, no masses, or JVD, No carotid bruits, No thyromegaly Lungs: Clear to auscultation, Clear to percussion, Normal respiratory effort, no accessory muscle use Cardiovascular: Heart regular in rate and rhythm, No murmurs, gallops, or rubs, No peripheral edema Abdominal: Soft, Nontender, no guarding, rebound or rigidity, Normoactive bowel sounds, No hepatomegaly, No splenomegaly, No palpable mass Skin: Normal temperature, tone, texture, turgor, no induration, No subcutaneous nodules, No rash, lesions, No ulcers Extremities: No digital cyanosis, No clubbing, Pedal pulses intact and symmetrical, Radial pulses intact and symmetrical, No calf tenderness Psychiatric: Alert and oriented to person, place and time, appropriate affect, intact judgement Neuro: Muscles Strength 5/5 in all 4 extremities, Sensation to light touch grossly present throughout, Cranial nerves II-XII grossly intact, no focal sensory deficits Results CBC & Chem 7: 03/02/18 00:18 03/02/18 00:18 Labs: Abnormal Lab Results - Last 24 Hours (Table) 03/02/18 03/02/18 03/02/18 Range/Units 00:18 00:18 00:18 WBC 3.6 L (3.8-10.6) k/uL RBC 3.72 L (3.80-5.40) m/uL Plt Count 133 L (150-450) k/uL APTT (22.0-30.0) sec Sodium 133 L (137-145) mmol/L Chloride 95 L (98-107) mmol/L Carbon Dioxide 31 H (22-30) mmol/L BUN 26 H (7-17) mg/dL Creatinine 1.07 H (0.52-1.04) mg/dL AST 67 H (14-36) U/L CK-MB (CK-2) 3.0 H (0.0-2.4) ng/mL Total Protein 6.1 L (6.3-8.2) g/dL 03/02/18 Range/Units 00:18 WBC (3.8-10.6) k/uL RBC (3.80-5.40) m/uL Plt Count (150-450) k/uL APTT 21.3 L (22.0-30.0) sec Sodium (137-145) mmol/L Chloride (98-107) mmol/L Carbon Dioxide (22-30) mmol/L BUN (7-17) mg/dL Creatinine (0.52-1.04) mg/dL AST (14-36) U/L CK-MB (CK-2) (0.0-2.4) ng/mL Total Protein (6.3-8.2) g/dL Assessment and Plan Plan: Acute chest pain Rule out CAD as a cause EKG, chest x-ray and initial troponin all negative Cycle troponins Telemetry Cardiology consult Morphine 2 mg stat and then as needed Essential hypertension Hold beta moises in anticipation for possible stress test Chronic Atrial Fibrillation,, GERD/Reflux, Hyperlipidemia, Osteoarthritis (OA) Stable Resume home medications DVT prophylaxis Ambulatory, low risk, not indicated
[2018-03-02 07:40] LABS: Basophils % (A) 0 %; Eosinophils # (A) 0.1 k/uL (0-0.7); Eosinophils % (A) 1 %; HCT 37.7 % (34.0-46.0); HGB 12.1 gm/dL (11.4-16.0); Lymphocytes # (A) 1.3 k/uL (1.0-4.8); Lymphocytes % (A) 23 %; MCH 31.8 pg (25.0-35.0); MCHC 32.1 g/dL (31.0-37.0); MCV 99.2 fL (80.0-100.0); Mean Platelet Volume 7.7; Monocytes # (A) 0.3 k/uL (0-1.0); Monocytes % (A) 5 %; Neutrophils # (A) 3.8 k/uL (1.3-7.7); Neutrophils % (A) 68 %; Platelet Count 132 k/uL (150-450); RDW 13.7 % (11.5-15.5); WBC 5.6 k/uL (3.8-10.6)
[2018-03-02 07:54] LABS: Partial Thromboplastin Time 30.2 sec (22.0-30.0); Prothrombin Time 10.3 sec (9.0-12.0)
[2018-03-02 07:58] LABS: Albumin 3.7 g/dL (3.5-5.0); Calcium 9.3 mg/dL (8.4-10.2); Potassium 4.3 mmol/L (3.5-5.1); Total Bilirubin 0.7 mg/dL (0.2-1.3); Total Protein 6.2 g/dL (6.3-8.2)
[2018-03-02 08:18] LABS: Creatine Kinase MB 2.1 ng/mL (0.0-2.4); Troponin I 0.023 ng/mL (0.000-0.034)
[2018-03-02] MEDS ORDERED: IPRATROPIUM BROMIDE 0.06% NASAL SPRAY (15 ML) EA NOSTRIL SCH (09:00)
[2018-03-02] MEDS ORDERED: CHOLECALCIFEROL 1,000 UNIT TAB PO SCH (09:00)
[2018-03-02] MEDS ORDERED: APIXABAN 2.5 MG TABLET PO SCH (09:00)
[2018-03-02] MEDS ORDERED: SODIUM CHLORIDE 0.9% 500 ML 500 ML IV ONE ×2 (09:45→10:07)
[2018-03-02] MEDS ORDERED: CALCIUM CARBONATE 500 MG CHEWABLE PO PRN (10:16)
--- NOTE | 2018-03-02 10:28 | P.PN ---
Subjective Late entry note. Initially seen about 9:50 am. Patient is 88-year-old female with history of coronary artery disease and atrial fibrillation on anticoagulation with Eliquis who was admitted last night for some retrosternal chest pain sharp in nature not associated with any radiation to the back or extremities and without any shortness of breath. Patient initial EKG was nonacute findings, blood pressure was stable in the 140s and she was in heart rate 80s. 2 sets of troponins negative. Patient was initially started on heparin drip which we subsequently had to stop because also she is on Eliquis and that was continued as well. However this morning I was called that her blood pressure is 77/50 and heart rate 100-110. I found the patient in her bed awake and alert in no any apparent distress. She states that she's been having some retrosternal chest pain sharp in nature without radiation mild to moderate. Associated lightheadedness nausea vomiting or shortness of breath leg or arm pain. Chart was reviewed and appears the patient having normally hypertension and taking Lopressor. Patient did not receive any Lopressor or any blood pressure medications this morning. She did have loose bowel movement this morning but no diarrhea prior to that. She denies any fever or chills. There is no any focal pain. Most specifically there is no any abdominal neck or thigh pain. Stat EKG showed atrial fibrillation with RVR in the right [address] segment changes. Lumbar work this morning shows stable findings from the night before. After half liter bolus of normal saline her blood pressure went into 122/80 and she persisted in the A. fib with RVR of the rate of 100-110. She stated that she is feeling much better although still's some mild retrosternal pain was present and patient requested Tums as she's not sure if this is regarding to her heartburns or is a different type of pain. Second bolus of half liter of normal saline is currently underway Patient's chart review showing that in sometimes in 2017 echocardiogram showed EF of 50-55% without any significant valve abnormalities. Also around that time she had CT angiogram of the chest for PE that showed 4.1 cm ascending aortic aneurysm. Objective - Vital Signs Vital signs: Vital Signs Temp 97.6 F 03/02/18 00:04 Pulse 112 H 03/02/18 09:37 Resp 18 03/02/18 09:37 BP 77/65 03/02/18 09:37 Pulse Ox 100 03/02/18 09:37 Intake & Output 03/01/18 03/02/18 03/02/18 18:59 06:59 18:59 Weight 46.72 kg - Exam Vital Signs: I have reviewed the vital signs. GENERAL: no apparent distress, cooperative Eyes: PERRL, extraoculry movements intact, clear conjunctiva Head: : Atraumatic external nose and ears, oropharyngeal mucosa is moist without lesions or exudates Neck: Symmetric, trachea midline, No thyromegaly, no masses or neck vain pulsation, no neck rigidity CVS: +S1/S2, irregularly irregular tachycardic, No significant murmurs or gallops. Peripheral pulses 2+ and equal in all extremities. RESP: Unlabored respiratory effort. Clear to auscultation bilaterally. Abdomen: Bowel sounds present in all 4 quadrants, Soft to palpation, Nontender/ Nondistended, No hepatosplenomegaly, no hernias or masses, no CVA tnderness Musculoskeletal: Extremities w/o deformity, No cyanosis or clubbing, no joint swelling Skin: Warm, Dry. No rashes or lesions Neuro: international sales manager II-XII grossly intact, motor strenght 5/5 i upper and lower extremities, no clonus, patellar DTRs 2+ and sympetrical Psych: Awake, Alert, & Oriented (AAO) x3 Appropriate mood and affect - Labs CBC & Chem 7: 03/02/18 07:13 03/02/18 07:13 Labs: Abnormal Lab Results - Last 24 Hours (Table) 03/02/18 03/02/18 03/02/18 Range/Units 00:18 00:18 00:18 WBC 3.6 L (3.8-10.6) k/uL RBC 3.72 L (3.80-5.40) m/uL Plt Count 133 L (150-450) k/uL APTT (22.0-30.0) sec Sodium 133 L (137-145) mmol/L Chloride 95 L (98-107) mmol/L Carbon Dioxide 31 H (22-30) mmol/L BUN 26 H (7-17) mg/dL Creatinine 1.07 H (0.52-1.04) mg/dL Glucose (74-99) mg/dL AST 67 H (14-36) U/L ALT (9-52) U/L CK-MB (CK-2) 3.0 H (0.0-2.4) ng/mL Total Protein 6.1 L (6.3-8.2) g/dL 03/02/18 03/02/18 03/02/18 Range/Units 00:18 07:13 07:13 WBC (3.8-10.6) k/uL RBC (3.80-5.40) m/uL Plt Count 132 L (150-450) k/uL APTT 21.3 L 30.2 H (22.0-30.0) sec Sodium (137-145) mmol/L Chloride (98-107) mmol/L Carbon Dioxide (22-30) mmol/L BUN (7-17) mg/dL Creatinine (0.52-1.04) mg/dL Glucose (74-99) mg/dL AST (14-36) U/L ALT (9-52) U/L CK-MB (CK-2) (0.0-2.4) ng/mL Total Protein (6.3-8.2) g/dL 03/02/18 Range/Units 07:13 WBC (3.8-10.6) k/uL RBC (3.80-5.40) m/uL Plt Count (150-450) k/uL APTT (22.0-30.0) sec Sodium 136 L (137-145) mmol/L Chloride (98-107) mmol/L Carbon Dioxide (22-30) mmol/L BUN 23 H (7-17) mg/dL Creatinine 1.07 H (0.52-1.04) mg/dL Glucose 121 H (74-99) mg/dL AST 83 H (14-36) U/L ALT 55 H (9-52) U/L CK-MB (CK-2) (0.0-2.4) ng/mL Total Protein 6.2 L (6.3-8.2) g/dL Assessment and Plan Assessment: 88-year-old female who was presenting with retrosternal chest pain. She is also drop her blood pressure this morning and developed A. fib with RVR in the rate 100 to 110. She responded very favorably after bolus of normal saline and we will continue another bolus with IV fluids. Currently her pressure is 122/ 88 heart rate and rhythm unchanged. 2 sets of troponins are negative in EKG is without any acute changes showing A. fib with RVR. Hb is 12.1, from 11.1 last night and exam is non focal, no abdominal pain or tenderness. In view of history of ascending aortic aneurysm we will obtain stat CT angiogram of the chest dissection protocol. Hold anticoagulation until dissection ruled out. I also discussed with cardiology, agreeable with CTA plan and then start low dose Dig and possibly BB low dose if BP stable. I spoke with the patient regarding this and got her permission to call her granddaughter and update her all the plan of care. Further recommendations based on the findings of the CT angio. Addendum: Ascending aortic aneurysm found on CTA. Spoke with CTS Dr. Davis, due to advanced age and high risk surgery, recommends transfer to [facility]. Spoke with cardiology, no further meds for a fib rate control last dose of Eliquis yesterday, 2.5 mg, heparin turned off more then 4 hrs prior CTA and PTT at that time was in normal limits. Last Eliquis was yesterday , low dose 2.5 mg. No specific reversal agent available and it has been more than 24hrs since last dose. PT was WNL. Discussed with pharmacy regarding reversal protocols, no specific reversal agents available. Spoke with granddaughter Maranda, updated on findings, agreable with transfer to [facility]. Spoke with [facility] CTS Dr. Martinez, risks of surgery discussed, accepted the patient if family and patient agreable with risks. Spoke with Pt's granddaughter Maranda, patient and patient's grandson. pt is living independently, no use of assisting devices. They are willing to proceed with transfer to [facility] and be further evaluated. Transfer process initiated and pt transfer promptly. Last BP 111/60, HR 110 a fib. Time with Patient: Greater than 30
[2018-03-02] MEDS ORDERED: SODIUM CHLORIDE 0.9% 1,000 ML IV SCH (11:00)
[2018-03-02 11:09] VITALS: RESP 18
--- NOTE | 2018-03-02 11:35 | CT ---
CT CHEST FOR PULMONARY EMBOLISM. EXAMINATION TYPE: CT angio chest DATE OF EXAM: 03/02/2018 INDICATION: Upper chest pain, possible thoracic dissection CT DLP: 562.1 mGycm, Automated exposure control for dose reduction was used. CONTRAST: Patient injected with 100 mL of Isovue 370. COMPARISON: 04/07/2016 TECHNIQUE: CT of the chest is performed on a spiral scan at 2 mm thick sections. Study is performed with intravenous contrast timed for evaluation for pulmonary embolism. This will limit additional po rtions of the evaluation. 3-D MIP images reconstructed by the technologist are reviewed on the compu ter in the coronal and sagittal planes. FINDINGS: There is an ascending thoracic aortic dissection which begins at the aortic root just above the valve . Dissection flaps are noted posteriorly and anteriorly and extending to the aortic arch along the la teral anterior aortic arch. Extension into the great vessels is not identified. There may be some ter mination of the dissection flap at the posterior aortic arch. Report was immediately called to the so und on-call physician covering for Dr. Beatty by Dr. Morgan 1126 hours 03/02/2018. The descending thoracic aorta does not have a clear dissection. There is a faint suggestion of a poss ible dissection flap above the concha of the diaphragm along the medial aspect of the distal aortic arc h above the renal arteries. Series 501, image 88. However, there is limitation on this portion of the study given beam hardening artifact. No mediastinal or hilar adenopathy enlarged by CT criteria is evident. There is some diffuse increas ed density. Mediastinal bladder is not excluded. There is some compression of the right main pulmonar y artery. Left main pulmonary artery appears normal. Consider some pulmonary hypertension. There is s ome reflux into the distal portion of the inferior vena cava. The ascending aorta diameter at the lev el of the main pulmonary artery is 4.1 cm. The main pulmonary artery diameter at the bifurcation is 1.7 cm. Moderate pericardial fluid is present. Pericardial Hemorrhage could be considered at this lev el. There are small bilateral pleural fluid collections. Lung windows are clear. Limited CT section through the upper abdomen are unremarkable. IMPRESSIONS: 1. 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 Flap termination may be in the posterior arch. 2. Increased density within the mediastinum and pericardial effusion. Consider mediastinal and perica rdial hemorrhage. 3. Narrowing of the main pulmonary artery and right main pulmonary artery. There is some reflux of co ntrast into the inferior vena cava from the atrium. Consider pulmonary hypertension. 3. Small bilateral pleural fluid collections. A Red level critical message alert has been initiated for Martin Pop MD~[id number] via the [employer] Critical Results System on 03/02/2018 11:32 AM. This message alert has been sent to Martin Pop MD~[id number] via the preferences provided by the clinician for the receipt of Radiology Critical Findin gs. Message ID [id number].
[2018-03-02 12:20] VITALS: TEMP 97.8
[2018-03-02] MEDS ORDERED: MORPHINE SULFATE 2 MG/ML SYRINGE IVP PRN (13:19)
[2018-03-02] MEDS ORDERED: ONDANSETRON 4 MG/2 ML VIAL IVP STA (14:13)
[2018-03-02 14:23] VITALS: BP 128/110; PULSE 115
--- NOTE | 2018-03-02 18:38 | P.DS ---
Providers Date of admission: 03/02/18 01:19 Attending physician: Hernán Colunga MD Consults: 03/02/18 01:14 Consult Physician Urgent Consulting Provider: [facility] Consult Reason/Comments: Chest Pain Do you want consulting provider notified?: Yes, Notify in am Primary care physician: Chema Elodia [facility] Course: please refer to my progress note and day for all the details for encounter regarding this patient In summary this is a 88-year-old female with history of coronary artery disease and A. fib who was admitted for chest pain overnight. Per further evaluation she was found to have ascending aortic dissection and after discussion with cardiothoracic surgical team here and patient and her family patient was transferred to [facility] for further management See my progress note for detail on history and review of system and physical examination and clinical decision making Patient Condition at Discharge: Critical Plan - Discharge Summary New Discharge Prescriptions: No Action Nitroglycerin Sl Tabs [Nitrostat] 0.4 mg SUBLINGUAL Q5M PRN PRN Reason: Chest Pain Calcium Carbonate/Vitamin D3 [Caltrate 600 + D Tablet] 1 tab PO BID Royce Cit/Mag/D3/Zn/Human Resource Officer/Madhu/Bor [Citracal-Vit D + Magnesium Tab] 2 tab PO BID Apixaban [Eliquis] 2.5 mg PO BID #60 tablet Furosemide [Lasix] 20 mg PO BID Ipratropium Bastian 0.06%Nasal [Atrovent Nasal 0.06%] 2 spray EA NOSTRIL BID Cholecalciferol (Vitamin D3) [Vitamin D3] 2,000 unit PO DAILY Multivit-Min/Iron/Folic/Lutein [Centrum Silver Women Tablet] 1 tab PO DAILY oxyCODONE-APAP 7.5-325MG [Percocet 7.5-325 mg] 1 tab PO TID Metoprolol Succinate [Toprol XL] 25 mg PO DAILY Discharge Medication List Royce Cit/Mag/D3/Zn/Human Resource Officer/Madhu/Bor [Citracal-Vit D + Magnesium Tab] 2 tab PO BID [History] Calcium Carbonate/Vitamin D3 [Caltrate 600 + D Tablet] 1 tab PO BID 07/22/13 [ History] Nitroglycerin Sl Tabs [Nitrostat] 0.4 mg SUBLINGUAL Q5M PRN 07/22/13 [History] Apixaban [Eliquis] 2.5 mg PO BID #60 tablet 04/08/16 [Rx] Furosemide [Lasix] 20 mg PO BID 09/05/16 [History] Ipratropium Bastian 0.06%Nasal [Atrovent Nasal 0.06%] 2 spray EA NOSTRIL BID 09/15 [History] Cholecalciferol (Vitamin D3) [Vitamin D3] 2,000 unit PO DAILY 12/24/16 [History] Multivit-Min/Iron/Folic/Lutein [Centrum Silver Women Tablet] 1 tab PO DAILY [History] Metoprolol Succinate [Toprol XL] 25 mg PO DAILY 03/02/18 [History] oxyCODONE-APAP 7.5-325MG [Percocet 7.5-325 mg] 1 tab PO TID 03/02/18 [History] Follow up Appointment(s)/Referral(s): Chema Clifton MD [Primary Care Provider] - 1-2 days Discharge Disposition: OTHER INSTITUTION NOT DEFINED
[2018-03-03] MEDS ORDERED: ASPIRIN 81 MG PO SCH (09:00)
[2018-03-03] MEDS ORDERED: ASPIRIN 325 MG TAB PO SCH (09:00)
== END 2018-03-02 14:50 | disposition other institution (70) ==
LOC: EC 23:47 → 1SOBS 03-02 01:19
PROVIDERS: ADMIT Internal Medicine; ATTEND Internal Medicine
DX: R07.89 Other chest pain (principal); I71.2 Thoracic aortic aneurysm, without rupture; I25.10 Atherosclerotic heart disease of native coronary artery without angina pectoris; I48.91 Unspecified atrial fibrillation; I10 Essential (primary) hypertension; M19.90 Unspecified osteoarthritis, unspecified site; K58.9 Irritable bowel syndrome, unspecified; K64.9 Unspecified hemorrhoids; K21.9 Gastro-esophageal reflux disease without esophagitis; E78.5 Hyperlipidemia, unspecified; K62.3 Rectal prolapse; G56.02 Carpal tunnel syndrome, left upper limb; Z79.01 Long term (current) use of anticoagulants; Z79.899 Other long term (current) drug therapy; Z88.2 Allergy status to sulfonamides; Z88.6 Allergy status to analgesic agent; Z91.011 Allergy to milk products; Z95.5 Presence of coronary angioplasty implant and graft; Z90.49 Acquired absence of other specified parts of digestive tract; Z87.11 Personal history of peptic ulcer disease; Z96.612 Presence of left artificial shoulder joint; Z87.828 Personal history of other (healed) physical injury and trauma; Z87.440 Personal history of urinary (tract) infections; Z83.3 Family history of diabetes mellitus; Z82.49 Family history of ischemic heart disease and other diseases of the circulatory system
CPT/HCPCS: 96376; 96361; 96365; 96366; 96375; 99285; 36415; 93005; 80053; 82550; 82553; 83735; 84484; 85025; 85610; 85730; 71046; 71275; G0378; J1644 ×2; J2405; J2270; Q9967